=== PATIENT | female | born 1960 | race Caucasian/White ===

== ENCOUNTER → 2016-12-10 | Outpatient (CLI) | payer OTHER, MEDICARE | END | disposition home or self-care (01) | LOC: LABPAT 11:24 | PROVIDERS: ATTEND Orthopaedic Surgery | DX: Z01.812 Encounter for preprocedural laboratory examination (principal) | CPT/HCPCS: 87070 ==

== ENCOUNTER 2016-12-29 08:01 | Inpatient (IN) | payer OTHER, MEDICARE ==
[2016-12-22 17:57] VITALS: BMI 29.0
[~2016-12-29 08:01] MED LIST: ACETAMINOPHEN TAB 500 MG TAB PO ONE; DEXAMETHASONE SOD PHOSPHATE 10 MG/ML 1 ML VIAL IV ONE; HYDROmorphone 1 MG/ML 1 ML SYRINGE IVP PRN; LIDOCAINE 1% 20 ML VIAL (10MG/ML) FOR IV START INTRADERMA PRN; MELOXICAM 7.5 MG TAB PO ONE; MIDAZOLAM 2 MG/2 ML VIAL IV PRN; ONDANSETRON 4 MG/2 ML VIAL IVP ONE; ROPIVACAINE 246.25 MG, EPINEPHrine 0.5 MG, KETOROLAC 30 MG, cloNIDine HCL/PF 80 MCG, WA... MISCELLANE ONE; SCOPOLAMINE 1.5MG/72HR PATCH TRANSDERM ONE; TRANEXAMIC ACID 1,000 MG in SODIUM CHLORIDE 0.9% 100 ML IVPB ONE; ceFAZolin 2 GM in SODIUM CHLORIDE 0.9% 100 ML IVPB ONE
[2016-12-29] MEDS: LACTATED RINGERS 1,000 ML IV SCH ×2 (08:25→23:14)
[2016-12-29] MEDS ORDERED: LIDOCAINE 1% 20 ML VIAL (10MG/ML) FOR IV START INTRADERMA ONE (08:26)
[2016-12-29] MEDS ORDERED: PROPOFOL 10 MG/ML 20 ML VIAL IV ONE (10:00)
[2016-12-29] MEDS ORDERED: SODIUM CHLORIDE 0.9% IRRIG 1,000 ML BTL IRRIGATION ONE (10:00)
[2016-12-29] MEDS ORDERED: MIDAZOLAM 2 MG/2 ML VIAL ONE (10:00)
[2016-12-29] MEDS ORDERED: HEPARIN SODIUM,PORCINE 10,000 UNIT/ML 1 ML VIAL ONE (10:00)
[2016-12-29] MEDS ORDERED: fentaNYL (PF) 50 MCG/ML 2 ML AMP ONE (10:00)
[2016-12-29] MEDS ORDERED: ceFAZolin 3,000 MG in SODIUM CHLORIDE 0.9% IRRIGATIO 3,000 ML IRRIGATION ONE (10:49)
[2016-12-29] MEDS ORDERED: LACTATED RINGERS 1,000 ML IV ONE (12:15)
[2016-12-29] MEDS ORDERED: MAGNESIUM HYDROXIDE 2,400 MG/10 ML CUP PO PRN (12:18)
[2016-12-29] MEDS ORDERED: HYDROcodone/APAP 7.5-325MG 1 EACH TAB PO PRN (12:18)
[2016-12-29] MEDS ORDERED: DIAZEPAM 5 MG TAB PO PRN ×2 (12:18)
[2016-12-29] MEDS ORDERED: NALOXONE 0.4 MG/ML 1 ML VIAL IV PRN (12:18)
[2016-12-29] MEDS ORDERED: ONDANSETRON 4 MG/2 ML VIAL IVP PRN (12:18)
[2016-12-29] MEDS ORDERED: HYDROmorphone 1 MG/ML 1 ML SYRINGE IVP PRN ×3 (12:18)
--- NOTE | 2016-12-29 12:28 | FL ---
Fluoroscopy HISTORY: Pain 41 seconds fluoroscopy time supplied to the referring clinician. 2 intraoperative C-arm images docum ent the procedure. See dictated report from orthopedic surgery.
--- NOTE | 2016-12-29 12:28 | XR ---
Limited left hip HISTORY: Hip replacement 2Intraoperative C-arm images document the procedure
--- NOTE | 2016-12-29 12:41 | XR ---
EXAMINATION TYPE: XR Hip Limited LT DATE OF EXAM: 12/29/2016 12:36 PM COMPARISON: NONE HISTORY: 56-year-old female status post hip surgery, assess surgical alignment TECHNIQUE: Single portable AP view FINDINGS: Image shows placement of left total hip arthroplasty. Both acetabular cup and femoral short stemmed c omponents of the prosthesis appear well seated without periprosthetic fracture. Alignment is grossly anatomic. Soft tissue gas related to recent operation. IMPRESSION: Uncomplicated postoperative appearance left total hip arthroplasty.
--- NOTE | 2016-12-29 15:33 | P.OP ---
Date of Procedure: 12/29/16 Preoperative Diagnosis: Severe osteoarthritis left hip Postoperative Diagnosis: Severe osteoarthritis left hip Procedure(s) Performed: Left total hip arthroplasty with a direct anterior approach Implants: Graf and nephew Polarstem size 5 standard Graf & Nephew R3, 3 hole acetabular shell, 52 mm Graf & Nephew reflection 6.5 mm cancellus screw, 20 mm 2 Graf & Nephew R3, XLPE 20 acetabular liner Graf & Nephew Oxinium femoral head 36 m, +0 All components were press-fit. The articulation is ceramic on polyethylene. Anesthesia: spinal Surgeon: Jimmy Ornelas Alumina Plant Supervisor #1: Jackie Ohara Estimated Blood Loss (ml): 250 (110 returned with cell saver) Pathology: other (Femoral head) Condition: stable Disposition: PACU Indications for Procedure: After failure of conservative treatment we discussed the surgical and nonsurgical treatment options at length. Patient wishes to proceed with a total hip arthroplasty with a direct anterior approach. Complications specific to this procedure were discussed at length, including but not limited to infection, leg length discrepancy, dislocation, and nerve injury. Patient is aware of all these complications and informed consent was obtained Operative Findings: The operative findings are consistent with severe osteoarthritis of the left hip. Description of Procedure: Patient was seen and evaluated in the preoperative area, consent was reviewed, and the surgical site was marked with a skin marker. Patient was then brought to the operating room and given prophylactic antibiotics intravenously. 1 g of Tranexamic acid was also given. A spinal anesthetic was administered by the anesthesia department. A Daniel catheter was then placed by the nursing staff. The patient was then placed on the Clifton table with the bony prominences well- padded. The hip area was then prepped and draped in usual sterile fashion. A universal timeout was then performed, which confirmed the patient's name, surgical site, ALLERGIES, and procedure being performed. Next the incision site was located at 1 cm distal and 1 cm lateral to the anterior superior iliac spine. The skin and subcutaneous tissues were sharply incised. Incision was carefully dissected down to the fascia overlying the tensor fascia ernesto muscle. This fascia was then incised in line with the incision. Next, using blunt finger dissection, the tensor fascia ernesto muscle was dissected off its investing fascia. The muscle was then carefully retracted laterally with a cobra retractor over the lateral neck of the femur. Next, the circumflex vessels were identified and cauterized using the AquaMantis device. The anterior hip capsule was then exposed. The capsule was then opened and an inverted T fashion. Retention sutures were placed in the inferior arms of the capsule. Cobra retractors were then placed intracapsularly. The proximal femur was then visualized. The femoral neck was then osteotomized appropriate level above the lesser trochanter. Small amount of traction was placed with the Clifton table. A small wedge of bone was then removed from the remaining femoral head. Next, using a corkscrew femoral head was easily removed from the acetabulum. On gross visual inspection, the femoral head had complete loss of articular cartilage in multiple periarticular osteophytes. Attention was then turned to the acetabulum. the acetabulum was exposed and any remaining labrum was excised. Sequential reaming of the acetabulum was performed using fluoroscopic guidance. When the appropriate size was reached, a trial was then placed. The position and fit of the trial was checked with fluoroscopy. The trial was then removed. Then, using fluoroscopic guidance, the final implant was impacted at 20 of anteversion and 40 of abduction, and fully seated in the acetabulum. 2 screws were then placed in the acetabulum. Again fluoroscopy was used to check position of the screws. Next, the liner was then impacted, with a 20 elevated liner located in the anterior superior quadrant. Component locking was confirmed. Attention was then directed to the femur. With the aid of the Clifton table, the femur was externally rotated to approximately 130, extended, and abducted under the opposite leg. A side hook was then placed under the proximal femur, and the side hook elevator was used to elevate the proximal femur. Retractors were then placed. A capsular release was performed, as well as a release of the conjoined tendon, which afforded excellent visualization of the proximal femur. Next, a box osteotome was used to lateralize the proximal femur. A iron handler was then used to locate the femoral canal. Sequential broaching was then performed with appropriate size which afforded excellent fixation in the proximal femur. A trial was then placed with appropriate head and neck, and the hip was gently reduced with the aid of the Clifton table. Fluoroscopy was then used to check position of the components, as well as to ensure equal leg lengths. The hip was then gently dislocated and the trials were then removed. Final implants were then impacted and the hip was again reduced. Final fluoroscopic x-rays confirmed that the components were in anatomic position, as well as equal leg lengths. The hip was also taken through range of motion, and found to be stable. The hip was then copiously irrigated with antibiotic solution with pulsatile lavage. The hip was then irrigated with Irrisept solution. The soft tissues were then injected with a ropivacaine solution, which consisted of 246.25 mg of ropivacaine, 0.5 mg of epinephrine, 30 mg of Toradol, 80 g of clonidine, and 48.45 mL of sterile water, for a total of 100 mL of fluid injected. A second dose of 1 g of Tranexamic acid was also given. the fascia was then closed with 2-0 strata fix suture. The subcutaneous tissue was closed with 3-0 Vicryl. The subcuticular tissue was closed with 3-0 strata fix suture. The skin was then closed with Dermabond tape. The patient was then transferred to the recovery room in stable condition. The compounding assistant MARIA TERESA Christensen was required due to the complexity of surgery , and the need for skilled offset assistant press operator for positioning, draping, exposure , retraction, and closure of the wound.
[2016-12-29] MEDS: SODIUM CHLORIDE 0.9% 1,000 ML IV SCH ×3 (16:43→23:16)
[2016-12-29] MEDS: HYDROcodone/APAP 7.5-325MG 1 EACH TAB PO PRN (16:43)
[2016-12-29] MEDS: ceFAZolin 2 GM in SODIUM CHLORIDE 0.9% 100 ML IVPB SCH ×2 (16:43→23:13)
[2016-12-29] MEDS: hydrOXYzine PAMOATE 25 MG CAP PO PRN (16:44)
[2016-12-29] MEDS: ASPIRIN 325 MG TAB PO SCH (20:41)
[2016-12-29] MEDS ORDERED: SENNOSIDES-DOCUSATE SODIUM 1 EACH TAB PO SCH (21:00)
[2016-12-29] MEDS ORDERED: PRAVASTATIN SODIUM 40 MG TAB PO SCH (21:00)
[2016-12-30] MEDS: HYDROcodone/APAP 7.5-325MG 1 EACH TAB PO PRN ×2 (00:41→06:35)
[2016-12-30] MEDS: hydrOXYzine PAMOATE 25 MG CAP PO PRN ×2 (00:41→06:36)
[2016-12-30 07:10] LABS: Anion Gap 8 mmol/L; Blood Urea Nitrogen 16 mg/dL (7-17); Calcium 8.5 mg/dL (8.4-10.2); Carbon Dioxide 26 mmol/L (22-30); Chloride 110 mmol/L (98-107); Glucose 122 mg/dL (74-99); Non-African American GFR(MDRD) >60 (>60 ml/min/1.73 sqM); Potassium 3.7 mmol/L (3.5-5.1); Sodium 144 mmol/L (137-145)
[2016-12-30 07:23] LABS: Basophils % (A) 0 %; CHCM 33.2; Eosinophils % (A) 0 %; HCT 38.5 % (34.0-46.0); HDW 2.61; Luc # (Auto) 0.18; Luc % (Auto) 1; Lymphocytes # (A) 1.7 k/uL (1.0-4.8); Lymphocytes % (A) 12 %; MCH 32.4 pg (25.0-35.0); MCHC 33.5 g/dL (31.0-37.0); MCV 96.9 fL (80.0-100.0); Monocytes # (A) 0.9 k/uL (0-1.0); Monocytes % (A) 6 %; Neutrophils # (A) 10.8 k/uL (1.3-7.7); Neutrophils % (A) 80 %; RBC 3.97 m/uL (3.80-5.40); RDW 13.4 % (11.5-15.5); WBC 13.6 k/uL (3.8-10.6); WBC (Perox) 14.08
[2016-12-30 07:42] LABS: HGB 12.9 gm/dL (11.4-16.0)
[2016-12-30 07:47] VITALS: BP 126/62; PULSE 74; RESP 16; TEMP 97.6
--- NOTE | 2016-12-30 08:56 | P.DS ---
Providers Date of admission: 12/29/16 08:01 Expected date of discharge: 12/30/16 Attending physician: Jimmy Ornelas Consults: 12/29/16 12:18 Consult Physician Routine Consulting Provider: Jackson Pedroza Reason/Comments: medical management Do you want consulting provider notified?: Yes Primary care physician: Jackson Pedroza - Discharge Diagnosis(es) (1) Primary osteoarthritis of left hip Current Visit: Yes Status: Acute (2) Status post left hip replacement Current Visit: Yes Status: Acute Hospital Course: This is a pleasant 56-year-old female who was last seen in our office with complaints of left hip pain. Patient has known history of degenerative arthritis of the left hip and presented to discuss options. After discussion consideration the patient elected to proceed with a left total hip arthroplasty. Patient was seen preoperatively medically cleared for surgery by Dr. Pedroza. Patient was admitted to [facility] and underwent left total hip arthroplasty. The procedure was performed without complications or sequelae. The patient has done well postoperatively. pain has been are reasonably controlled and is progressing with physical therapy. The patient has no new complaints today. Patient denies shortness of breath, nausea or abdominal pain. The patient appears comfortable and in no acute distress. Dressing is clean dry and intact. Incision is fine with no erythema or active drainage. Calf is soft and nontender. The patient has good foot and ankle motion without difficulty. Lower extremities are neurovascularly intact. The patient is orthopedically stable for discharge Pertinent Studies: Laboratory Tests 12/30/16 06:28 WBC 13.6 H RBC 3.97 Hgb 12.9 D Hct 38.5 MCV 96.9 Patient Condition at Discharge: Good Plan - Discharge Summary New Discharge Prescriptions: Aspirin 325 mg PO BID #60 tab HYDROcodone/APAP 7.5-325MG [[place] 7.5] 1 - 2 each PO Q6HR PRN #90 tab PRN Reason: Pain Sennosides-Docusate Sodium [Senokot-S] 2 tab PO DAILY #60 tablet Discharge Medication List Cyclobenzaprine [Flexeril] 10 mg PO HS 04/25/15 [History] Hydrochlorothiazide [Hydrodiuril] 12.5 mg PO DAILY 04/25/15 [History] Pravastatin Sodium [Pravachol] 40 mg PO HS 04/25/15 [History] Citalopram Hydrobromide [Citalopram HBr] 40 mg PO DAILY 05/06/15 [History] Ibuprofen [Motrin] 800 mg PO Q8HR PRN 12/22/16 [History] HYDROcodone/APAP 10-325MG [[place] 10] 1 - 2 tab PO Q6H PRN 12/29/16 [History] Aspirin 325 mg PO BID #60 tab 12/30/16 [Rx] HYDROcodone/APAP 7.5-325MG [[place]man 7.5] 1 - 2 each PO Q6HR PRN #90 tab 12/30/16 [ Rx] Sennosides-Docusate Sodium [Senokot-S] 2 tab PO DAILY #60 tablet 12/30/16 [Rx] Follow up Appointment(s)/Referral(s): Jimmy Ornelas DO [Doctor of Osteopathic Medicine] - 2 Weeks Activity/Diet/Wound Care/Special Instructions: Weightbearing as tolerated with walker Daily dressing changes Keep incision clean and dry Call [facility] with questions or concerns [phone] Discharge Disposition: HOME WITH HOME HEALTH SERVICES
[2016-12-30] MEDS ORDERED: MELOXICAM 7.5 MG TAB PO SCH (09:00)
[2016-12-30] MEDS ORDERED: HYDROCHLOROTHIAZIDE 12.5 MG CAP PO SCH (09:00)
[2016-12-30] MEDS ORDERED: CITALOPRAM HYDROBROMIDE 20 MG TAB PO SCH (09:00)
[2016-12-30] MEDS: ASPIRIN 325 MG TAB PO SCH (09:29)
--- NOTE | 2016-12-30 13:36 | P.CONS ---
History of Present Illness - Reason for Consult Consult date: 12/29/16 Medical management Requesting physician: Jimmy Ornelas - Chief Complaint Left hip pain - History of Present Illness Patient is a 56 shell female, patient of Dr. Jackson Pedroza in the outpatient setting, with past medical history detailed below significant for degenerative arthritis of the left hip that did not respond to medical management as an outpatient. Patient presented to the hospital for elective left total hip arthroplasty. Patient tolerated procedure well. Patient is evaluated on surgical unit she is postop day #1. Patient is doing well. Incisional pain controlled. Patient has been up walking with physical therapy. Denies chills, fevers, nausea, vomiting, shortness of breath, chest pain, abdominal pain. Patient is tolerating diet. Patient has been urinating without difficulty. Afebrile. Hemodynamically stable. Past Medical History Past Medical History: Hyperlipidemia, Hypertension, Osteoarthritis (OA) History of Any Multi-Drug Resistant Organisms: None Reported Past Surgical History: Hysterectomy, Joint Replacement Additional Past Surgical History / Comment(s): COLONOSCOPY. BILAT TKA Past Anesthesia/Blood Transfusion Reactions: No Reported Reaction Past Psychological History: Anxiety Additional Psychological History / Comment(s): CLAUSTROPHOBIC Smoking Status: Current every day smoker Past Alcohol Use History: None Reported Additional Past Alcohol Use History / Comment(s): HAS SMOKED 1 PPD SINCE AGE 16 Past Drug Use History: None Reported - Past Family History Father Family Medical History: Cancer Mother Family Medical History: Cancer Brother(s) Family Medical History: Cancer Medications and Allergies Home Medications Medication Instructions Recorded Confirmed Type Cyclobenzaprine [Flexeril] 10 mg PO HS 04/25/15 12/29/16 History Hydrochlorothiazide [Hydrodiuril] 12.5 mg PO DAILY 04/25/15 12/29/16 History Pravastatin Sodium [Pravachol] 40 mg PO HS 04/25/15 12/29/16 History Citalopram Hydrobromide 40 mg PO DAILY 05/06/15 12/29/16 History [Citalopram HBr] Ibuprofen [Motrin] 800 mg PO Q8HR PRN 12/22/16 12/29/16 History HYDROcodone/APAP 10-325MG [[place] 1 - 2 tab PO Q6H PRN 12/29/16 12/29/16 History 10] Allergies Allergy/AdvReac Type Severity Reaction Status Date / Time No Known Allergies Allergy Verified 12/29/16 15:52 Physical Exam Vitals: Vital Signs Temp Pulse Pulse Resp BP Pulse Ox 12/30/16 07:00 97.6 F 74 16 126/62 97 12/30/16 04:33 98.0 F 69 17 136/69 94 L 12/29/16 19:30 97.8 F 86 17 134/76 94 L 12/29/16 16:00 82 16 12/29/16 15:30 82 16 117/70 96 12/29/16 15:15 79 16 135/70 100 12/29/16 15:00 81 16 130/74 93 L 12/29/16 14:45 85 16 142/75 98 12/29/16 14:30 87 16 131/76 98 12/29/16 14:15 73 16 142/72 100 12/29/16 14:00 73 16 132/72 96 12/29/16 13:45 96.4 F L 72 16 127/73 98 12/29/16 13:29 71 16 123/65 98 Intake and Output 12/29/16 12/30/16 12/30/16 22:59 06:59 14:59 Intake Total 780 100 240 Output Total 700 200 Balance 780 -600 40 Intake: IV 300 Sodium Chloride 0.9% 1, 300 000 ml @ 75 mls/hr IV . [id number] [facility] Rx#:[id number] Intake, IV Titration 100 Amount ceFAZolin 2 gm In Sodium 100 Chloride 0.9% 100 ml @ 100 mls/hr IVPB Q8HR [facility] Rx#:[id number] Oral 480 240 Output: Urine 700 200 Uretheral (Daniel) 700 200 Other: Voiding Method Indwelling Catheter Weight 81.647 kg GENERAL: Pt awake and alert, well-appearing, well-nourished, and in no acute distress. HEAD: Atraumatic, normocephalic. EYES: Pupils equal, round, sclera anicteric, conjunctiva are normal. ENT: Moist mucous membranes. NECK: Supple without lymphadenopathy or JVD. LUNGS: Breath sounds clear to auscultation bilaterally. No wheezes, rales, or rhonchi. HEART: Heart S1, S2, no S3 or S4. Regular rate and rhythm. No murmurs, rubs or gallops. ABDOMEN: Soft, nontender, nondistended, normoactive bowel sounds. No guarding, no rebound. No masses or organomegaly appreciated. EXTREMITIES: Palpable peripheral pulses. No calf tenderness. Left hip incision dressing dry and intact. NEUROLOGICAL: Pt oriented x 3. Cranial nerves II through XII grossly intact. Strength and sensation grossly intact. PSYCH: Normal mood, normal affect. SKIN: Warm, dry, intact. Normal turgor. No rashes or lesions. Results CBC & Chem 7: 12/30/16 06:28 12/30/16 06:28 Labs: Abnormal Lab Results - Last 24 Hours (Table) 12/30/16 12/30/16 Range/Units 06:28 06:28 WBC 13.6 H (3.8-10.6) k/uL Neutrophils # 10.8 H (1.3-7.7) k/uL Chloride 110 H (98-107) mmol/L Glucose 122 H (74-99) mg/dL Assessment and Plan Plan: Impression: 1. Primary osteoarthritis to left hip status post total left hip arthroplasty. 2. Leukocytosis, suspect reactive. 3. History of hyperlipidemia. 4. Hypertension. 5. History of anxiety, stable. 6. Nicotine dependence. Plan: Continue surgical management by orthopedic service. Home medications have been reviewed and resumed. Smoking cessation encouraged. Continue physical therapy. Continue supportive treatment and pain management. From a medical standpoint, patient is stable for discharge when cleared by orthopedic service. Patient will follow-up with Dr. Pedroza in 1-2 weeks after discharge. The above impression and plan have been discussed and directed by Dr. Pedroza. Jeff CENTENO acting as scribe for Dr. Pedroza.
== END 2016-12-30 11:13 | disposition home health service (06) | DRG 470 ==
LOC: 2ORMAIN 08:01 → 3SUR 12:26
PROVIDERS: ADMIT Orthopaedic Surgery; ATTEND Orthopaedic Surgery
PROC: 0SRB04A Replacement of Left Hip Joint with Ceramic on Polyethylene Synthetic Substitute, Uncemented, Open Approach (ICD-10-PCS; principal; 2016-12-29 09:40)
DX: M16.12 Unilateral primary osteoarthritis, left hip (principal); I10 Essential (primary) hypertension; E78.5 Hyperlipidemia, unspecified; F17.200 Nicotine dependence, unspecified, uncomplicated; Z79.899 Other long term (current) drug therapy; D72.829 Elevated white blood cell count, unspecified; F40.240 Claustrophobia; F41.9 Anxiety disorder, unspecified; Z96.653 Presence of artificial knee joint, bilateral
CPT/HCPCS: 73501; 80048; 85025; 86850; 86891; 86900; 86901; 88300

== ENCOUNTER → 2017-05-03 | Outpatient (CLI) | payer OTHER, MEDICARE ==
--- NOTE | 2017-05-03 15:43 | US ---
EXAMINATION TYPE: US thyroid st tissue head/neck DATE OF EXAM: 05/03/2017 COMPARISON: Previous study dated 07/01/2011. CLINICAL HISTORY: E04.1 Thyroid Nodule. GLAND SIZE: Right Lobe: 4.4 x 1.7 x 1.5 cm Overall Parenchyma: heterogenous Left Lobe: 4.6 x 1.6 x 1.5 cm Overall Parenchyma: heterogeneous Isthmus Thickness: 0.5 cm NODULES RIGHT: # of nodules measured on right: 2 1. 0.6 X 0.3 x 0.3 cm cystic nodule at the mid pole with well-defined margins. This nodule is tall er than wide and shows no intranodular vascularity. Prior size: 0.5 cm 2. 0.4 X 0.3 x 0.5 cm hypoechoic solid nodule at the mid/inf pole with poorly defined margins. This nodule is taller than wide and shows no intranodular vascularity. Prior size: no prior LEFT: # of nodules measured on left: 1 1. 0.8 X 0.8 x 0.7 cm isoechoic solid nodule at the mid pole with well-defined margins. This nodul e is taller than wide and shows no intranodular vascularity. Prior size: 0.9 cm ISTHMUS: # of nodules measured in the isthmus: 0 Bilateral neck scanned. Left lymph node seen measuring 1.8 x 0.9 x 0.5 cm IMPRESSION: STABLE MULTINODULAR GOITER
--- NOTE | 2017-05-04 07:57 | MM ---
Reason for exam: additional evaluation requested from prior study. Last mammogram was performed 2 years and 7 months ago. History: Patient is postmenopausal and is nulliparous. Benign cyst aspiration of the right breast. Physical Findings: Nurse did not find any significant physical abnormalities on exam. MG 3D Diag Mammo W/Cad KEVIN Bilateral CC and MLO view(s) were taken. Prior study comparison: October 03, 2014, bilateral MG screening mammo w CAD. March 25, 2011, bilateral digital screening mammo w/CAD. There are scattered fibroglandular densities. No significant new findings when compared with previous films. These results were verbally communicated with the patient and result sheet given to the patient on 05/03/17. ASSESSMENT: Benign, BI-RAD 2 RECOMMENDATION: Routine screening mammogram of both breasts in 1 year. Manage patient on a clinical basis.
== END | disposition home or self-care (01) ==
LOC: RADUSWWP 15:00
PROVIDERS: ATTEND Family Medicine
DX: N64.52 Nipple discharge (principal); E04.2 Nontoxic multinodular goiter
CPT/HCPCS: 76536; G0204; G0279

== ENCOUNTER → 2017-06-24 | Outpatient (CLI) | payer OTHER, MEDICARE ==
--- NOTE | 2017-06-25 07:58 | US ---
EXAMINATION TYPE: US carotid duplex BILAT DATE OF EXAM: 06/24/2017 COMPARISON: NONE CLINICAL HISTORY: G45.9 Acute Transient cerebral ischemic attack. Right facial numbness and mild faci al drooping; smoker x 40 years. EXAM MEASUREMENTS: RIGHT: Peak Systolic Velocity (PSV) cm/sec ----- Right CCA: 82.4 ----- Right ICA: 90.5 ----- Right ECA: 106.7 ICA/CCA ratio: 1.1 RIGHT: End Diastole cm/sec ----- Right CCA: 23.9 ----- Right ICA: 31.7 ----- Right ECA: 15.6 LEFT: Peak Systolic Velocity (PSV) cm/sec ----- Left CCA: 80.3 ----- Left ICA: 101.8 ----- Left ECA: 170.8 ICA/CCA ratio: 1.3 LEFT: End Diastole cm/sec ----- Left CCA: 27.3 ----- Left ICA: 31.1 ----- Left ECA: 29.3 VERTEBRALS (direction of flow): Right Vertebral: Antegrade Left Vertebral: Antegrade Cardiac Rhythm: Normal Mild intimal thickening is noted at bilateral carotid bifurcation with additional wall change imaged at Left ECA proximally with abnormally elevated PSV at Left ECA. IMPRESSION: 1. Atheromatous plaquing without significant flow-limiting stenosis. Criteria for Assigning % of Stenosis / Diameter reduction (Estimation based on the indirect measurements of the internal carotid artery velocities (ICA PSV). 1. Normal (no stenosis)=ICA PSV < 125 cm/s: ratio < 2.0: ICA EDV<40 cm/s. 2. Less than 50% stenosis=ICA PSV < 125 cm/s: ratio < 2.0: ICA EDV<40 cm/s. 3. 50 to 69% stenosis=ICA PSV of 125 to 230 cm/s: ration 2.0 ? 4.0: ICA EDV 40-100 cm/s. 4. Greater than 70% stenosis to near occlusion= ICA PSV > 230 cm/s: ratio > 4.0: ICA EDV > 100 cm/s. 5. Near occlusion= ICA PSV velocities may be low or undetectable: variable ratio and ICA EDV. 6. Total occlusion=unable to detect flow.
== END | disposition home or self-care (01) ==
LOC: RADUSWWP 15:36
PROVIDERS: ATTEND Family Medicine
DX: I65.23 Occlusion and stenosis of bilateral carotid arteries (principal)
CPT/HCPCS: 93880

== ENCOUNTER → 2017-07-08 | Outpatient (CLI) | payer OTHER, MEDICARE ==
--- NOTE | 2017-07-08 09:58 | MR ---
EXAMINATION TYPE: MR brain wo con DATE OF EXAM: 07/08/2017 9:44 AM COMPARISON: NONE HISTORY: lt acute arterial ischemic stroke Multiplanar and multispin-echo imaging of the brain was performed . The ventricles, basal cisterns and sulci overlying the cerebral convexities are within normal limits. There is no evidence for midline shift or mass effect. Acute intracranial hemorrhage or extra-axial collection is not evident. The brain parenchyma reveals no abnormal increased signal. No acute edema is identified. The paranasal sinuses and mastoid air cells are well-aerated. IMPRESSION: Unremarkable MRI of the brain.
== END | disposition home or self-care (01) ==
LOC: RADMRIMAIN 09:11
PROVIDERS: ATTEND Psychiatry & Neurology Neurology
DX: I63.512 Cerebral infarction due to unspecified occlusion or stenosis of left middle cerebral artery (principal)
CPT/HCPCS: 70551

== ENCOUNTER → 2017-09-06 | Outpatient (CLI) | payer OTHER, MEDICARE ==
--- NOTE | 2017-09-06 10:33 | CT ---
EXAMINATION TYPE: CT chest wo con DATE OF EXAM: 09/06/2017 COMPARISON: 01/08/2011 HISTORY: Hemoptysis CT DLP: 493.1 mGycm, Automated exposure control for dose reduction was used. CONTRAST: Performed injected with 0 mL of Omnipaque 350. TECHNIQUE: Axial images were obtained at 5 mm thick sections. Reconstructed images are reviewed on [employer] computer in the coronal plane. FINDINGS: Portion of the thyroid visualized is normal. There appears to be some scarring at the right apex, stable. A 0.6 cm density is in the anterior left apex, new. There is a tiny 0.3 cm nodule within the anterior right upper lobe, new. Series 4 image 1 6. A pneumatocele may be in the superior segment left lower lobe. A 0.6 cm pleural-based density may be in the posterior lateral right lung base, enlarged from 2010. Series 4 image 55. No enlarged mediastinal or hilar adenopathy is evident. There are scattered small lymph nodes withi n the mediastinum. The ascending aorta diameter at the level of the main pulmonary artery is 3.5 cm. The main pulmonary artery diameter at the bifurcation is 3.1 cm. Mild coronary artery calcifications present. Limited CT sections are obtained through the upper abdomen. Abdomen is essentially unremarkable. IMPRESSIONS: 1. Few scattered small nodules discussed above. Follow-up chest CT in 6 months is recommended for ree valuation.
== END | disposition home or self-care (01) ==
LOC: RADCTMAIN 07:19
PROVIDERS: ATTEND Family Medicine
DX: R91.8 Other nonspecific abnormal finding of lung field (principal); R04.2 Hemoptysis
CPT/HCPCS: 71250

== ENCOUNTER 2017-12-16 10:57 | Day surgery (SDC) | payer MEDICARE, OTHER ==
[2017-12-14 16:57] VITALS: BMI 29.0
[~2017-12-16 10:57] MED LIST changes: -ACETAMINOPHEN TAB 500 MG TAB PO ONE; +ALBUTEROL NEB (CONC) 2.5 MG/0.5 ML INHALATION ONE; +ATROPINE SULFATE 0.4 MG/ML 1 ML VIAL IM ONE; -DEXAMETHASONE SOD PHOSPHATE 10 MG/ML 1 ML VIAL IV ONE; -HYDROmorphone 1 MG/ML 1 ML SYRINGE IVP PRN; +LACTATED RINGERS 1,000 ML IV SCH; +LIDOCAINE 2% (PF) 20 MG/ML 2 ML AMP INHALATION ONE; -MELOXICAM 7.5 MG TAB PO ONE; -MIDAZOLAM 2 MG/2 ML VIAL IV PRN; -ONDANSETRON 4 MG/2 ML VIAL IVP ONE; +Pre Op ABX Message 1 EACH MISC MISCELLANE ONE; -ROPIVACAINE 246.25 MG, EPINEPHrine 0.5 MG, KETOROLAC 30 MG, cloNIDine HCL/PF 80 MCG, WA... MISCELLANE ONE; -SCOPOLAMINE 1.5MG/72HR PATCH TRANSDERM ONE; -TRANEXAMIC ACID 1,000 MG in SODIUM CHLORIDE 0.9% 100 ML IVPB ONE; -ceFAZolin 2 GM in SODIUM CHLORIDE 0.9% 100 ML IVPB ONE
[2017-12-16 11:36] VITALS: RESP 16; TEMP 98.5
[2017-12-16] MEDS ORDERED: MIDAZOLAM 2 MG/2 ML VIAL ONE (12:26)
[2017-12-16] MEDS ORDERED: PROPOFOL 10 MG/ML 20 ML VIAL IV ONE (12:26)
[2017-12-16] MEDS ORDERED: LIDOCAINE 1% INJ 10MG/ML (20 ML MDV) ONE (12:26)
--- NOTE | 2017-12-16 12:55 | P.PCN ---
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 The patient was premedicated with a combination of Versed 2 mg and Diprivan 120 mg. After achieving adequate sedation, the flexible bronchoscope was inserted to the right nostril and was advanced into the upper airway. Examination of the posterior oropharynx and larynx was done and there was significant amount of adipose tissue with collapsibility of the upper airway typical of an underlying obstructive sleep apnea. The epiglottis was identified. It was within normal limits. The vallecula, arytenoids and vocal cords were inspected and were within normal limits. There was no evidence of any abnormalities or any bleeding source in the upper airway. A total of 2 mL of 1% lidocaine was applied to the vocal cords and following that the patient was intubated and the bronchoscope was moved throughout the airway. Examination of the tracheal bronchial tree was done. The visualized airways included the trachea, bilateral mainstem bronchi, right upper lobe bronchus, right middle lobe bronchus, bronchus intermedius, right lower lobe bronchus, left upper lobe bronchus, left lower lobe bronchus, left mainstem bronchus. All of these airways were free of any endobronchial tumors or lesions. In fact no fresh blood or any old blood or blood clots was identified. The bronchial mucosa was slightly inflamed and erythematous in the level of the secondary brenda the to the left upper lobe and the left lower lobe. No foreign bodies. No tumors. Some loose secretions were seen and these were suctioned out. Note that the patient had a component of tracheal bronchomalacia which was moderate in severity with dynamic obstruction of the lower airways with exhalation maneuvers and coughing. At the and of the procedure, the bronchoscope was removed and the patient was transferred recovery in stable condition. This is a normal airway examination with some sicca bronchomalacia evident on inspection. No biopsy obtained. The patient was discharged home and she'll contact me back if there is any recurrent hemoptysis.
[2017-12-16] MEDS ORDERED: LACTATED RINGERS 1,000 ML IV ONE (12:57)
[2017-12-16 13:42] VITALS: BP 134/72; PULSE 77
[2017-12-17] MEDS ORDERED: LACTATED RINGERS 1,000 ML IV ONE (05:00)
== END 2017-12-16 13:55 | disposition home or self-care (01) ==
LOC: ORWHC2ENDO 10:57
PROVIDERS: ATTEND Internal Medicine Critical Care Medicine
DX: J98.09 Other diseases of bronchus, not elsewhere classified (principal); G47.33 Obstructive sleep apnea (adult) (pediatric); E78.5 Hyperlipidemia, unspecified; I10 Essential (primary) hypertension; J44.9 Chronic obstructive pulmonary disease, unspecified; F17.210 Nicotine dependence, cigarettes, uncomplicated; M19.90 Unspecified osteoarthritis, unspecified site; M41.9 Scoliosis, unspecified; R60.0 Localized edema; F41.9 Anxiety disorder, unspecified; F32.9 Major depressive disorder, single episode, unspecified; Z79.82 Long term (current) use of aspirin; Z79.891 Long term (current) use of opiate analgesic; Z79.899 Other long term (current) drug therapy
CPT/HCPCS: 94640; 31622; J2250; J2001 ×2; J2704; 31624

== ENCOUNTER → 2018-05-30 | Outpatient (CLI) | payer MEDICARE ==
--- NOTE | 2018-05-30 17:04 | CT ---
EXAMINATION TYPE: CT chest w con DATE OF EXAM: 05/30/2018 COMPARISON: 09/06/2017, chest x-ray 12/09/2017 HISTORY: abnormal CXR CT DLP: 542 mGycm, Automated exposure control for dose reduction was used. CONTRAST: Performed injected with 100mL mL of Isovue 300. TECHNIQUE: Axial images were obtained at 5 mm thick sections. Reconstructed images are reviewed on [employer] computer in the coronal plane. FINDINGS: Portion of the thyroid visualized is normal. The right apical scarring appears stable. 0.6 cm left apical anterior thickening is stable. Previous 3 mm anterior right lung density is not identified on the current exam. Some pneumonitis change in the lingula is nonspecific but could be related atelectasis or pneumonia. No enlarged mediastinal or hilar adenopathy is evident. The ascending aorta diameter at the level o f the main pulmonary artery is 3.3 cm. The main pulmonary artery diameter at the bifurcation is 2.[address] sections are obtained through the upper abdomen. Abdomen is essentially unremarkable. IMPRESSIONS: 1. Stable CT chest. Follow-up exam in one year is recommended to confirm continued stability.
== END | disposition home or self-care (01) ==
LOC: RADCTMAIN 07:12
PROVIDERS: ATTEND Internal Medicine Critical Care Medicine
DX: R91.8 Other nonspecific abnormal finding of lung field (principal)
CPT/HCPCS: 71260; Q9967

== ENCOUNTER → 2018-11-01 | Outpatient (CLI) | payer MEDICARE ==
--- NOTE | 2018-11-01 11:37 | CT ---
EXAMINATION TYPE: CT abdomen pelvis wo/w con DATE OF EXAM: 11/01/2018 COMPARISON: HISTORY: Periumbilical pain and bloating CT DLP: 1623.3 mGycm Automated exposure control for dose reduction was used. CONTRAST: CT scan of the abdomen pelvis is performed without and with IV Contrast, patient injected with 100 mL of Isovue 300. FINDINGS- LUNG BASES- No significant abnormality is appreciated. LIVER/GB- No gross abnormality is appreciated. PANCREAS- No gross abnormality is seen. SPLEEN-sensory spleen noted. ADRENALS- No gross abnormality is seen. KIDNEYS/BLADDER-there is a 2 cm left renal lesion which measures 39 Hounsfield units is not compatibl e with a simple cyst. No hydronephrosis. No nephrolithiasis.. BOWEL-diverticulosis of the colon. Localized area of wall thickening within the sigmoid colon. More l ocalized area of bowel narrowing near the splenic flexure appears transient. Likely related to focal area of peristalsis.. LYMPH NODES- No greater than 1cm abdominal or pelvic lymph nodes areappreciated. OSSEOUS STRUCTURES-hypertrophic and degenerative change of the vertebral column. Previous surgery inv olving the left hip. Arthropathy of the right hip.. OTHER- 2 cm left adnexal cyst recommend pelvic ultrasound. IMPRESSION- 1. There is a 2 cm left adnexal cyst recommend pelvic ultrasound. 2. There is a 2 cm left renal mass which measures 39 Hounsfield units and is not compatible with a si mple cyst. Solid neoplasm not excluded. Recommend MRI. 3. Diverticulosis of the colon. There is mild wall thickening likely secondary to diverticulosis. The re is a more localized area of wall thickening involving the sigmoid colon on image 66. Correlate for polyp or mucosal lesion correlate with direct visualization or barium enema as clinically warranted.
== END | disposition home or self-care (01) ==
LOC: RADCTMAIN 09:13
PROVIDERS: ATTEND Family Medicine
DX: K57.30 Diverticulosis of large intestine without perforation or abscess without bleeding (principal); N28.89 Other specified disorders of kidney and ureter; R10.9 Unspecified abdominal pain; R19.4 Change in bowel habit
CPT/HCPCS: 74178; Q9967

== ENCOUNTER → 2018-11-07 | Outpatient (CLI) | payer MEDICARE ==
--- NOTE | 2018-11-07 22:58 | MR ---
EXAMINATION TYPE: MR kidney wo/w con DATE OF EXAM: 11/07/2018 COMPARISON: CT abdomen and pelvis from 6 days ago. HISTORY: Periumbilical pain and bloating, abnormal CT CONTRAST: Standard multiplanar, multisequence MRI departmental protocol utilizing 10 mL intravenous Gadavist ga dolinium contrast. FINDINGS: Kidneys: Correlating to recent CT centrally in the mid pole of the left kidney there is thin walled 2 .1 x 1.6 cm oval well-defined lesion of T2 hyperintensity and slight T1 hyperintensity without abnorm al postcontrast enhancement consistent with proteinaceous cyst. Remainder of both kidneys show no wor risome solid or cystic mass. No gross hydronephrosis is present bilaterally. Other: Lung bases are grossly clear. Somewhat contracted gallbladder is noted. The liver, spleen, pa ncreas, and both adrenal glands are normal in size. There is no suspicious bowel dilatation. No percy rning abdominal fluid collection is seen. No suspicious abdominal adenopathy is noted. There is multi level facet arthropathy in the visualized lower lumbar spine. IMPRESSION: The suspicious lesion on CT midpole of the left kidney shows no internal enhancement, imaging charact eristics are consistent with proteinaceous cyst.
== END | disposition home or self-care (01) ==
LOC: RADMRIMAIN 19:02
PROVIDERS: ATTEND Family Medicine
DX: N28.89 Other specified disorders of kidney and ureter (principal)
CPT/HCPCS: 74183; A9585

== ENCOUNTER → 2019-03-31 | Outpatient (CLI) | payer MEDICARE ==
--- NOTE | 2019-03-31 15:58 | CT ---
EXAMINATION TYPE: CT abdomen pelvis w con, CT abdomen wo con DATE OF EXAM: 03/31/2019 COMPARISON: MR kidney 11/07/2018, prior CT 11/01/2018 HISTORY: Follow up for left side renal mass and ovarian cyst. (accession [id number]), Follow up for lef t side renal mass. (accession [id number]) CT DLP: 1122.1 (accession [id number]), 437.7 (accession [id number]) mGycm Automated exposure control for dose reduction was used. TECHNIQUE: Helical acquisition of images from the lung bases through the pelvis have been completed, exam performed following oral contrast and before and after intravenous contrast. CONTRAST: Performed with Oral Contrast and without and with IV Contrast, patient injected with 100ml mL of Isov ue 300. FINDINGS: LUNG BASES: No significant abnormality is appreciated. AORTA: No significant abnormality is appreciated. LIVER/GB: No significant abnormality is appreciated. PANCREAS: No significant abnormality is seen. SPLEEN: No significant abnormality is seen. ADRENALS: No significant abnormality is seen. KIDNEYS: The hypodense focus involving the midpole the left kidney measures approximately 2.1 cm and slightly increased in attenuation consistent with previously described proteinaceous cyst, there is n o abnormal enhancement REPRODUCTIVE ORGANS: Uterus is absent. Left ovary shows an associated cystic focus measuring 2.5 cm. Right ovary is not seen. BOWEL: No significant abnormality is seen. Appendix is normal. FREE AIR: No Free Air visible. ASCITES: None visible. PELVIC ADENOPATHY: None visualized. RETROPERITONEAL ADENOPATHY: No Retroperitoneal Adenopathy visible. URINARY BLADDER: No significant abnormality is seen. OSSEOUS STRUCTURES: Patient is status post left hip arthroplasty. Degenerative disc changes are pres ent in the visualized spine with facet arthropathy noted in the lumbar spine at the lower levels. IMPRESSION: STABLE PROTEINACEOUS CYST, STABLE LEFT ADNEXAL CYST
== END | disposition home or self-care (01) ==
LOC: RADCTMAIN 13:40
PROVIDERS: ATTEND Family Medicine
DX: N83.00 Follicular cyst of ovary, unspecified side (principal); N28.89 Other specified disorders of kidney and ureter
CPT/HCPCS: 74150; 74177; Q9967

== ENCOUNTER → 2019-05-31 | Outpatient (CLI) | payer MEDICARE ==
--- NOTE | 2019-05-31 16:27 | US ---
EXAMINATION TYPE: US venous doppler duplex LE RT DATE OF EXAM: 05/31/2019 3:39 PM COMPARISON: NONE CLINICAL HISTORY: Right Leg, M25.571 Rt Ankle Pain. SIDE PERFORMED: TECHNIQUE: The lower extremity deep venous system is examined utilizing real time linear array sonog radha with graded compression, doppler sonography and color-flow sonography. VESSELS IMAGED: External Iliac Vein (EIV) Common Femoral Vein Deep Femoral Vein Greater Saphenous Vein * Femoral Vein Popliteal Vein Small Saphenous Vein * Proximal Calf Veins (* superficial vessels) Results given to Michelle immediately following exam. Right Leg: Negative for DVT GSV and PTV's scanned as well per order. IMPRESSION: No evidence for DVT.
== END | disposition home or self-care (01) ==
LOC: RADUSWWP 15:33
PROVIDERS: ATTEND Orthopaedic Surgery
DX: M79.661 Pain in right lower leg (principal); M19.071 Primary osteoarthritis, right ankle and foot

== ENCOUNTER → 2019-06-03 | Outpatient (CLI) | payer MEDICARE ==
--- NOTE | 2019-06-03 12:03 | CT ---
EXAMINATION TYPE: CT chest w con DATE OF EXAM: 06/03/2019 COMPARISON: 05/30/2018 HISTORY: follow up lung nodule, cough CT DLP: 515.1 mGycm, Automated exposure control for dose reduction was used. CONTRAST: Performed injected with 80 mL of Isovue 300. TECHNIQUE: Axial images were obtained at 5 mm thick sections. Reconstructed images are reviewed on [employer] computer in the coronal plane. FINDINGS: Portion of the thyroid visualized is normal. There is stable right apical scarring continued monitoring of this area is recommended. There is a 0.2 cm peripheral oval density in the right middle lobe. Series 4 image 29. This was prese nt previously. No enlarged mediastinal or hilar adenopathy is evident. The ascending aorta diameter at the level o f the main pulmonary artery is 3.3 cm. The main pulmonary artery diameter at the bifurcation is 3.[address] sections are obtained through the upper abdomen. Abdomen is essentially unremarkable. IMPRESSIONS: 1. Small lung densities stable from the comparison of 05/30/2018. These areas should be followed over the course of 2 years for stability.
== END | disposition home or self-care (01) ==
LOC: RADCTMAIN 11:25
PROVIDERS: ATTEND Internal Medicine Critical Care Medicine
DX: J98.4 Other disorders of lung (principal)
CPT/HCPCS: 71260; Q9967

== ENCOUNTER → 2019-06-30 | Outpatient (CLI) | payer MEDICARE ==
--- NOTE | 2019-06-30 17:53 | ECHOF ---
Referral Reason:R06.00 Dyspnea, unspecified MEASUREMENTS -------- HEIGHT: 167.6 cm WEIGHT: 83.9 kg BP: 134/70 RVIDd: 3.0 cm (< 3.3) IVSd: 1.4 cm (0.6 - 1.1) LVIDd: 5.1 cm (3.9 - 5.3) LVPWd: 1.4 cm (0.6 - 1.1) IVSs: 1.7 cm LVIDs: 3.7 cm LVPWs: 1.6 cm LA Diam: 3.5 cm (2.7 - 3.8) LAESV Index (A-L): 20.40 ml/m Ao Diam: 2.9 cm (2.0 - 3.7) AV Cusp: 2.0 cm (1.5 - 2.6) MV EXCURSION: 15.618 mm (> 18.000) MV EF SLOPE: 42 mm/s (70 - 150) EPSS: 0.5 cm MV E Anatoly: 0.67 m/s MV DecT: 232 ms MV A Anatoly: 0.76 m/s MV E/A Ratio: 0.89 TAPSE: 20.20 mm FINDINGS -------- Sinus rhythm. This was a technically adequate study. The left ventricular size is normal. There is moderate concentric left ventricular hypertrophy. O verall left ventricular systolic function is normal with, an EF between 55 - 60 %. The diastolic fi lling pattern is normal for the age of the patient 9.66. The right ventricle is normal in size. Normal LA size by volume 22+/-6 ml/m2. The right atrial size is normal. Interatrial and interventricular septum intact. The aortic valve is trileaflet, and appears structurally normal. No aortic stenosis or regurgitation. The mitral valve is normal. The tricuspid valve appears structurally normal. Trace tricuspid regurgitation present. The pulmonic valve was not well visualized. There is no pulmonic regurgitation present. The aortic root size is normal. Normal inferior vena cava with normal inspiratory collapse consistent with estimated right atrial pre ssure of 5 mmHg. There is no pericardial effusion. CONCLUSIONS -------- 1. Sinus rhythm. 2. This was a technically adequate study. 3. The left ventricular size is normal. 4. There is moderate concentric left ventricular hypertrophy. 5. Overall left ventricular systolic function is normal with, an EF between 55 - 60 %. 6. The diastolic filling pattern is normal for the age of the patient 9.66 7. Normal LA size by volume 22+/-6 ml/m2. 8. The aortic valve is trileaflet, and appears structurally normal. No aortic stenosis or regurgitati on. 9. The mitral valve is normal. 10. Trace tricuspid regurgitation present. 11. The pulmonic valve was not well visualized. 12. The aortic root size is normal. 13. Normal inferior vena cava with normal inspiratory collapse consistent with estimated right atrial pressure of 5 mmHg. 14. There is no pericardial effusion. PARENT PARTNER: Gail Fairchild RDCS
== END | disposition home or self-care (01) ==
LOC: RADECHMAIN 14:54
PROVIDERS: ATTEND Family Medicine
DX: I07.1 Rheumatic tricuspid insufficiency (principal)
CPT/HCPCS: 93306

== ENCOUNTER → 2019-07-04 | Outpatient (CLI) | payer MEDICARE ==
--- NOTE | 2019-07-06 10:52 | MM ---
Reason for exam: screening (asymptomatic). Last mammogram was performed 2 years and 2 months ago. History: Patient is postmenopausal and is nulliparous. Benign cyst aspiration of the right breast. Physical Findings: A clinical breast exam by your physician is recommended on an annual basis and results should be correlated with mammographic findings. MG Screening Mammo w CAD Bilateral CC and MLO view(s) were taken. Prior study comparison: May 03, 2017, bilateral MG 3d diag mammo w/cad [facility]. October 03, 2014, bilateral MG screening mammo w CAD. The breast tissue is heterogeneously dense. This may lower the sensitivity of mammography. There are benign appearing round dystrophic calcifications bilaterally. There is no discrete abnormality. ASSESSMENT: Benign, BI-RAD 2 RECOMMENDATION: Routine screening mammogram of both breasts in 1 year.
== END ==
LOC: RADMAMWWP 11:58
PROVIDERS: ATTEND Family Medicine
DX: Z12.31 Encounter for screening mammogram for malignant neoplasm of breast (principal)
CPT/HCPCS: 77067

== ENCOUNTER → 2019-09-23 | Outpatient (CLI) | payer MEDICARE ==
--- NOTE | 2019-09-23 22:30 | MR ---
EXAMINATION TYPE: MR lumbar spine wo con DATE OF EXAM: 09/23/2019 COMPARISON: None HISTORY: Back pain Multiplanar multiecho imaging of the lumbar spine was performed without contrast. Vertebra have normal alignment. There is mild uniform narrowing of lumbar disc spaces. There is no co mpression fracture. There is small posterior disc herniations from L2 to S1. There is developmentally small spinal canal and evidence of moderate spinal stenosis at L3-4 due to facet arthropathy and the minimal posterior disc bulging. The lumbar neural foramina are fairly well-maintained. There is no l umbar paraspinal mass. Posterior elements are intact. There is mild lateral recess stenosis at L4-5 d ue to facet arthropathy. There is 2 cm left renal cortical cyst. IMPRESSION: Multilevel spondylotic changes. L3-4 bony spinal stenosis related to facet arthropathy and minimal po sterior disc bulging. No fracture.
== END | disposition home or self-care (01) ==
LOC: RADMRIMAIN 09:54
PROVIDERS: ATTEND Psychiatry & Neurology Neurology
DX: M48.061 Spinal stenosis, lumbar region without neurogenic claudication (principal); M51.16 Intervertebral disc disorders with radiculopathy, lumbar region; M47.26 Other spondylosis with radiculopathy, lumbar region; M46.96 Unspecified inflammatory spondylopathy, lumbar region
CPT/HCPCS: 72148

== ENCOUNTER → 2020-07-05 | Outpatient (CLI) | payer MEDICARE ==
--- NOTE | 2020-07-06 06:55 | CT ---
EXAMINATION TYPE: CT abdomen pelvis w con DATE OF EXAM: 07/05/2020 HISTORY: abdominal pain. hx of diverticulitits. CT DLP: 1144.3mGycm Automated Exposure Control for Dose Reduction was Utilized. CONTRAST: CT scan of the abdomen and pelvis is performed with oral and with IV Contrast, patient injected with 100 mL of Isovue 300. COMPARISON: CT abdomen and pelvis March 31, 2019 FINDINGS: LUNG BASES: Elevated left hemidiaphragm with patchy bibasilar linear scarring and/or atelectasis. LIVER/GB: Contracted gallbladder. PANCREAS: A few small splenules in the splenic hilum. SPLEEN: No significant abnormality is seen. ADRENALS: No significant abnormality is seen. KIDNEYS: Symmetric cortical medullary uptake and excretion without hydronephrosis seen bilaterally. T here is 2.4 cm thin-walled cyst left kidney midpole level. BOWEL: The oral contrast reaches level of the rectum. No suspicious small or large bowel dilatation. Diverticula in the sigmoid colon. No CT evidence for acute diverticulitis. UTERUS/ADNEXA: Uterus surgically absent or markedly atrophic. Right ovary not well seen and may be hayward rgically absent. Left ovary slightly enlarged in size axial image 66 with thin-walled 2.0 x 1.8 cm hy podense lesion along the left aspect. No significant interval change from prior study. Lesion presume d benign given signal no significant interval change from [address] CT. LYMPH NODES: No greater than 1cm abdominal or pelvic lymph nodes are appreciated. OSSEOUS STRUCTURES: Levoconvex scoliosis. Moderate to severe disc space narrowing with vacuum disc ph enomenon lumbosacral junction. Posterior disc herniations efface the anterior thecal sac L3-L4 and L4 -L5 levels sagittal image 61. Left spur disc axial image 53 at L5-S1 level. Facet arthropathy mid to lower lumbar levels. Metallic artifact from left hip arthroplasty causes streak artifact. Moderate joint space loss right hip. OTHER: Mild/moderate calcified plaque of the abdominal aorta extends into iliac branch vessels. IMPRESSION: 1. Sigmoid colonic diverticulosis, no CT evidence for acute diverticulitis. No new or suspicious acut e finding identified.
== END | disposition home or self-care (01) ==
LOC: RADCTMAIN 17:24
PROVIDERS: ATTEND Surgery
DX: K57.30 Diverticulosis of large intestine without perforation or abscess without bleeding (principal)
CPT/HCPCS: 74177; Q9967

== ENCOUNTER → 2020-07-19 | Outpatient (CLI) | payer MEDICARE ==
--- NOTE | 2020-07-23 13:32 | MM ---
Reason for exam: screening (asymptomatic). Last mammogram was performed 1 year ago. History: Patient is postmenopausal and is nulliparous. Benign cyst aspiration of the right breast. Physical Findings: A clinical breast exam by your physician is recommended on an annual basis and results should be correlated with mammographic findings. MG Screening Mammo w CAD Bilateral CC and MLO view(s) were taken. Prior study comparison: July 04, 2019, bilateral MG screening mammo w CAD. May 03, 2017, bilateral MG 3d diag mammo w/cad KEVIN. There are scattered fibroglandular densities. There is chronic nodularity in the left breast inferiorly. Benign fat necrosis calcifications on the left. Stable regional calcifications on the right. No significant changes when compared with prior studies. ASSESSMENT: Benign, BI-RAD 2 RECOMMENDATION: Routine screening mammogram of both breasts in 1 year.
== END | disposition home or self-care (01) ==
LOC: RADMAMWWP 11:18
PROVIDERS: ATTEND Family Medicine
DX: Z12.31 Encounter for screening mammogram for malignant neoplasm of breast (principal)
CPT/HCPCS: 77067

== ENCOUNTER → 2021-01-21 | Outpatient (CLI) | payer MEDICARE ==
--- NOTE | 2021-01-21 16:30 | NM ---
Nuclear medicine hepatobiliary scan. HISTORY: Pain. DOSAGE: The patient received 8 ounces of ensure plus and 5.2 mCi of Technetium 99m Choletec. FINDINGS: There is heterogeneous hepatic extraction. The gallbladder is seen by 20 minutes. There i s biliary to bowel clearance by 20 minutes. Ejection fraction is 91%. IMPRESSION: 1. No evidence of cholecystitis. There is slightly heterogeneous uptake throughout the liver which co uld be artifactual. Correlation with ultrasound could be obtained for further evaluation as clinicall y warranted. 2. Ejection fraction of 91% which can occasionally be associated with hyperdynamic gallbladder. Corre late clinically.
== END | disposition home or self-care (01) ==
LOC: RADNMMAIN 12:52
PROVIDERS: ATTEND Family Medicine
DX: R93.2 Abnormal findings on diagnostic imaging of liver and biliary tract (principal)
CPT/HCPCS: 78226; A9537

== ENCOUNTER → 2021-02-03 | Outpatient (CLI) | payer MEDICARE | END | disposition home or self-care (01) | LOC: LABWHC1 14:35 | PROVIDERS: ATTEND Surgery | DX: Z01.812 Encounter for preprocedural laboratory examination (principal); Z20.822 Contact with and (suspected) exposure to COVID-19 | CPT/HCPCS: 93005; U0003; U0005 ==

== ENCOUNTER 2021-02-11 07:48 | Day surgery (SDC) | payer MEDICARE ==
[2021-02-05 16:24] VITALS: BMI 28.2
[~2021-02-11 07:48] MED LIST changes: -ALBUTEROL NEB (CONC) 2.5 MG/0.5 ML INHALATION ONE; -ATROPINE SULFATE 0.4 MG/ML 1 ML VIAL IM ONE; +DEXAMETHASONE SOD PHOSPHATE 4 MG/ML 1 ML VIAL IV ONE; +HEPARIN SODIUM,PORCINE/PF 5,000 UNIT/0.5 ML SYRINGE SQ PRN; +HYDROmorphone 0.5 MG/0.5 ML SYRINGE IVP PRN; -LIDOCAINE 1% 20 ML VIAL (10MG/ML) FOR IV START INTRADERMA PRN; -LIDOCAINE 2% (PF) 20 MG/ML 2 ML AMP INHALATION ONE; +MIDAZOLAM 2 MG/2 ML VIAL IV PRN; +ONDANSETRON 4 MG/2 ML VIAL IVP ONE; -Pre Op ABX Message 1 EACH MISC MISCELLANE ONE; +SCOPOLAMINE 1.5MG/72HR PATCH TRANSDERM ONE
[2021-02-11] MEDS ORDERED: fentaNYL (PF) 50 MCG/ML 2 ML AMP ONE (09:04)
[2021-02-11] MEDS ORDERED: INDOCYANINE GREEN 25 MG VIAL IV ONE (09:04)
[2021-02-11] MEDS ORDERED: GLYCOPYRROLATE 0.2 MG/ML 2 ML VIAL ONE (09:04)
[2021-02-11] MEDS ORDERED: PROPOFOL 10 MG/ML 20 ML VIAL IV ONE (09:04)
[2021-02-11] MEDS ORDERED: LIDOCAINE 1% INJ 10MG/ML (20 ML MDV) ONE (09:04)
[2021-02-11] MEDS ORDERED: hydrALAZINE HCL 20 MG/ML 1 ML VIAL ONE (09:04)
[2021-02-11] MEDS ORDERED: NEOSTIGMINE 1 MG/ML 10 ML VIAL ONE (09:04)
[2021-02-11] MEDS ORDERED: MIDAZOLAM 2 MG/2 ML VIAL ONE (09:04)
[2021-02-11] MEDS ORDERED: ROCURONIUM 10 MG/ML (5 ML VIAL) IV ONE (09:04)
[2021-02-11] MEDS ORDERED: SUCCINYLCHOLINE CHLORIDE 100 MG/5 ML SYR IV ONE (09:04)
[2021-02-11] MEDS ORDERED: LIDOCAINE 1%-EPI 1:100,000 20 ML VIAL SQ ONE ×2 (09:30)
--- NOTE | 2021-02-11 10:28 | P.OP ---
Date of Procedure: 02/11/21 Preoperative Diagnosis: Biliary dyskinesia Postoperative Diagnosis: Biliary dyskinesia Procedure(s) Performed: Robotic cholecystectomy Anesthesia: JHONY Surgeon: Daniel Arrington Pathology: other (Gallbladder and contents) Condition: stable Disposition: same day Indications for Procedure: 60-year-old female presented to the surgical clinic with complaints of abdominal pain in the right upper quadrant, bloating and gas. On workup, patient was found to have biliary dyskinesia. Patient has opted for laparoscopic, robotic, cholecystectomy. Risks, benefits and alternatives were provided to the patient, including risk of bleeding, risk of injury to surrounding organs, risk of infection. She did provide consent prior to attending the operating suite. Operative Findings: Distended gallbladder with multiple peritoneal and omental adhesions Description of Procedure: Patient was brought into the operating suite and placed in supine position on the operating table. Sedation was achieved by anesthesia patient underwent endotracheal intubation. The patient was then prepped and draped in regular sterile fashion. An infraumbilical incision was made and dissection was carried to the fascia. The fascia was incised and an 8 mm trocar was placed. Pneumoperitoneum was then achieved. 3 additional 8 mm ports were placed. 2 were placed in the right lower quadrant and one was placed in the left upper quadrant. The robot was undocked. The gallbladder was then grasped and retracted. The gallbladder was noted to be distended with many peritoneal and omental attachments. ICG was injected prior to procedure start. Cystic duct was dissected free from surrounding peritoneal attachments. Anatomy was confirmed using ICG technology. The cystic duct was then skeletonized. 2 clips were placed proximally and one was placed distally. The cystic duct was then ligated. Further dissection revealed the cystic artery and the cystic artery was skeletonized and ligated in a similar fashion. Dissection was then carried to remove the gallbladder from the gallbladder fossae using electrocautery. Hemostasis was noted to be maintained. The gallbladder was then placed in an Endo Catch bag and removed from the abdomen. Some mild bleeding was noted on the liver bed. Further hemostasis was made with electrocautery and Surgicell coagulant was used. Irrigation was used in the right upper quadrant and suctioned. No further bleeding was examined. At this point the infraumbilical incision fascial site was closed using an 0 Vicryl suture under direct visualization with a Trever-Denis device. All ports were then removed from the abdomen. All skin incisions were closed with 4-0 Vicryl subcuticular suture. Sterile dressing was applied. The patient was awakened in the operating suite and taken to postanesthesia care unit in stable condition.
[2021-02-11 10:39] VITALS: TEMP 96.8
[2021-02-11] MEDS ORDERED: KETOROLAC 15 MG/ML 1 ML VIAL IVP ONE (10:51)
[2021-02-11] MEDS ORDERED: LACTATED RINGERS 1,000 ML IV ONE (11:26)
[2021-02-11 12:02] VITALS: RESP 16
[2021-02-11] MEDS ORDERED: HYDROcodone/APAP 5-325MG 1 EACH TAB ONE (12:19)
[2021-02-11] MEDS ORDERED: HYDROcodone/APAP 5-325MG 1 EACH TAB PO ONE (12:30)
[2021-02-11 13:52] VITALS: BP 126/78; PULSE 71
== END 2021-02-11 13:45 | disposition home or self-care (01) ==
LOC: OR 07:48
PROVIDERS: ATTEND Surgery
DX: K81.1 Chronic cholecystitis (principal); I10 Essential (primary) hypertension; E78.5 Hyperlipidemia, unspecified; G47.33 Obstructive sleep apnea (adult) (pediatric); J44.9 Chronic obstructive pulmonary disease, unspecified; M19.90 Unspecified osteoarthritis, unspecified site; F17.210 Nicotine dependence, cigarettes, uncomplicated; Z79.82 Long term (current) use of aspirin; Z79.899 Other long term (current) drug therapy
CPT/HCPCS: 88304; 47563; J2250; J0360; J1100; J2710; J0690; J2405; J2001; J3010; J1885; J0330; J2704; J1644

== ENCOUNTER → 2021-07-15 | Outpatient (CLI) | payer MEDICARE ==
--- NOTE | 2021-07-15 14:44 | CTL ---
EXAMINATION TYPE: CT Low Dose Lung DATE OF EXAM ORDERED: 07/15/2021 HISTORY: . Lung cancer screening CT DLP: [address] CTDI: 2.33 mGy Automated exposure control for dose reduction was used. SCREENING VISIT: Initial COMPARISON: CT chest 06/03/2019 TECHNIQUE: Low dose computed tomography scan was performed through the chest at 1 mm thick sections a nd reconstructed images in the coronal plane at [address] DIAGNOSTIC QUALITY: Limited, but interpretable FINDINGS: LUNG NODULES: Present, detailed below: There is a left apical density measuring 0.9 x 1.5 cm. This was present in 2019 comparison. LUNGS: COPD: Severity: Mild Fibrosis: Severity: None Lymph nodes: None Other findings: None RIGHT PLEURAL SPACE: Effusion: None Calcification: None Thickening: None Pneumothorax: LEFT PLEURAL SPACE: Effusion: None Calcification: None Thickening: None Pneumothorax: No HEART: Heart Size: Normal Coronary calcification: None Pericardial effusion: None OTHER FINDINGS: Upper abdomen: Normal Bony thorax: Normal Supraclavicular region: Normal Other: Ascending thoracic aorta at the level the main pulmonary artery measures 3.3 cm. The main pul monary artery at the bifurcation measures 2.7 cm. IMPRESSION: 1. No suspicious interval change FOLLOW UP CT CHEST RECOMMENDATION: Yes, low-dose CT chest [address] LUNG RAD: Lung-Rad 2 Benign Appearance or Behavior
== END | disposition home or self-care (01) ==
LOC: RADCTMAIN 13:25
PROVIDERS: ATTEND Internal Medicine Critical Care Medicine
DX: Z12.2 Encounter for screening for malignant neoplasm of respiratory organs (principal); J44.9 Chronic obstructive pulmonary disease, unspecified; F17.210 Nicotine dependence, cigarettes, uncomplicated
CPT/HCPCS: 71271

== ENCOUNTER → 2021-10-08 | Outpatient (CLI) | payer MEDICARE ==
--- NOTE | 2021-10-10 11:48 | MM ---
Reason for exam: screening (asymptomatic). Last mammogram was performed 1 year and 3 months ago. History: Patient is postmenopausal and is nulliparous. Benign cyst aspiration of the right breast. Physical Findings: A clinical breast exam by your physician is recommended on an annual basis and results should be correlated with mammographic findings. MG 3D Screening Mammo W/Cad Bilateral CC and MLO view(s) were taken. Prior study comparison: July 19, 2020, bilateral MG screening mammo w CAD. July 04, 2019, bilateral MG screening mammo w CAD. Scattered fat necrosis and oil cyst calcifications left 12 o'clock periareolar focal asymmetry is more defined. ASSESSMENT: Incomplete: need additional imaging evaluation, BI-RAD 0 RECOMMENDATION: Special view mammogram of the left breast. (3D) [facility] will attempt to contact patient to return for supplemental views.
== END | disposition home or self-care (01) ==
LOC: RADMAMWWP 11:46
PROVIDERS: ATTEND Family Medicine
DX: Z12.31 Encounter for screening mammogram for malignant neoplasm of breast (principal); Z78.0 Asymptomatic menopausal state
CPT/HCPCS: 77063; 77067

== ENCOUNTER → 2021-10-16 | Outpatient (CLI) | payer MEDICARE ==
--- NOTE | 2021-10-16 14:23 | MM ---
Reason for exam: additional evaluation requested from abnormal screening. Last mammogram was performed less than 1 month ago. History: Patient is postmenopausal and is nulliparous. Benign cyst aspiration of the right breast. Physical Findings: Nurse did not find any significant physical abnormalities on exam. MG 3D Work Up W/Cad LT Spot compression CC, spot compression MLO, and LM view(s) were taken of the left breast. Prior study comparison: October 08, 2021, bilateral MG 3d screening mammo w/cad. July 19, 2020, bilateral MG screening mammo w CAD. There are scattered fibroglandular densities. The superior periareolar nodular asymmetry appears to disperse on additional views. Precautionary 6 month follow up recommended. These results were verbally communicated with the patient and result sheet given to the patient on 10/16/21. ASSESSMENT: Probably benign, BI-RAD 3 RECOMMENDATION: Follow-up diagnostic mammogram of the left breast in 6 months.
== END | disposition home or self-care (01) ==
LOC: RADMAMWWP 13:23
PROVIDERS: ATTEND Family Medicine
DX: R92.8 Other abnormal and inconclusive findings on diagnostic imaging of breast (principal); Z78.0 Asymptomatic menopausal state
CPT/HCPCS: 77065; G0279; 77061

== ENCOUNTER → 2021-11-19 | Outpatient (CLI) | payer MEDICARE ==
--- NOTE | 2021-11-19 15:31 | XR ---
Thoracic spine HISTORY: Pain 3 views of the thoracic spine There is an S-shaped thoracic scoliosis. Multilevel spondylosis is present. There is loss of disc hei ght at intervertebral levels. Thoracic vertebral bodies show preserved height. No evident paraspinal mass. Bone mineralization is reduced. The aorta is dense. IMPRESSION: Degenerative disc disease and spinal curvature.
== END | disposition home or self-care (01) ==
LOC: RADXRMAIN 14:43
PROVIDERS: ATTEND Family Medicine
DX: M51.34 Other intervertebral disc degeneration, thoracic region (principal); M43.8X4 Other specified deforming dorsopathies, thoracic region
CPT/HCPCS: 72072

== ENCOUNTER → 2022-04-29 | Outpatient (CLI) | payer MEDICARE ==
--- NOTE | 2022-04-29 11:35 | MM ---
Reason for Exam: Follow-up at short interval from prior study. Last screening mammogram was performed 7 month(s) ago. Patient History: Menarche at age 10. Patient has no children. Right ovary removed at age 38. Hysterectomy at age 38. Postmenopausal. Benign Cyst Aspiration on the right side. Risk Values: Alize 5 year model risk: 1.9%. NCI Lifetime model risk: 8.4%. Prior Study Comparison: 07/19/2020 Bilateral Screening Mammogram, [facility]. 10/08/2021 Bilateral Screening Mammogram, [facility]. 10/16/2021 Left Diagnostic Mammogram, [facility]. Tissue Density: Left: The breast tissue is heterogeneously dense. This may lower the sensitivity of mammography. Findings: Analyzed By CAD. Stable benign calcifications. No evidence for mass or distortion. Overall Assessment: Benign, BI-RAD 2 Management: Screening Mammogram of both breasts in 6 months. A clinical breast exam by your physician is recommended on an annual basis and results should be correlated with mammographic findings. This exam should not preclude additional follow-up of suspicious palpable abnormalities. Results were given to the patient verbally at the time of exam. Electronically signed and approved by: Adrián Kam M.D. Radiologis
== END | disposition home or self-care (01) ==
LOC: RADMAMWWP 10:41
PROVIDERS: ATTEND Surgery
DX: R92.8 Other abnormal and inconclusive findings on diagnostic imaging of breast (principal); Z78.0 Asymptomatic menopausal state
CPT/HCPCS: 77065; G0279; 77061

== ENCOUNTER → 2022-07-16 | Outpatient (CLI) | payer MEDICARE ==
--- NOTE | 2022-07-16 12:16 | CTL ---
EXAMINATION TYPE: CT Low Dose Lung DATE OF EXAM ORDERED: 07/16/2022 HISTORY: . Lung cancer screening, current personal history of smoking CT DLP: [address] CTDI: 2.41 mGy Automated exposure control for dose reduction was used. SCREENING VISIT: COMPARISON: 07/15/2021 TECHNIQUE: Low dose computed tomography scan was performed through the chest at 1 mm thick sections a nd reconstructed images in multiple planes at 1 mm and [address] DIAGNOSTIC QUALITY: Limited, but interpretable FINDINGS: LUNG NODULES: Stable 0.9 x 1.5 cm left apical lung nodule. Right apical pleural thickening noted. There is a subpleural nodule left lung apex measuring 5 mm new from prior exam. There is an additional 4 mm subpleural nodule left upper lobe. There is emphysematous change of the subsegmental areas of consolidation most typical of scar or atel ectasis. No pleural effusion or pneumothorax. No focal pneumonia. Heart size is stable. Atherosclerot ic change of the aorta with no evidence of aneurysm. Mild coronary artery calcified age. Hypertrophic and degenerative changes of the spine. Nonspecific calcification involving the region of the caudate lobe liver. IMPRESSION: 1. COPD with multiple nodules the largest which is stable in the left apex measuring 0.9 x 1.5 cm unc hanged from 2019 and therefore likely benign. 2. There is a new 5 mm subpleural nodule left lung apex. CT LUNG RAD AND CT CHEST RECOMMENDATION: Lung-Rad 2 Benign Appearance or Behavior: Continue annual sc reening with LDCT in 12 months. S Modifier (other clinically significant findings): S
== END | disposition home or self-care (01) ==
LOC: RADCTMAIN 11:17
PROVIDERS: ATTEND Internal Medicine Critical Care Medicine
DX: Z12.2 Encounter for screening for malignant neoplasm of respiratory organs (principal); J44.9 Chronic obstructive pulmonary disease, unspecified; Z87.891 Personal history of nicotine dependence
CPT/HCPCS: 71271

== ENCOUNTER → 2023-02-25 | Outpatient (CLI) | payer MEDICARE ==
--- NOTE | 2023-02-25 16:44 | US ---
EXAMINATION TYPE: US venous doppler duplex LE RT DATE OF EXAM: 02/25/2023 4:01 PM COMPARISON: Prior right lower extremity venous ultrasound May 31, 2019 CLINICAL INDICATION: Female, 62 years old with history of R22.41 SWELLING RT LOWER LIMB; Right leg ed kimber and pain SIDE PERFORMED: Right TECHNIQUE: The lower extremity deep venous system is examined utilizing real time linear array sonog radha with graded compression, doppler sonography and color-flow sonography. VESSELS IMAGED: Common Femoral Vein Deep Femoral Vein Greater Saphenous Vein * Femoral Vein Popliteal Vein Small Saphenous Vein * Proximal Calf Veins (* superficial vessels) Right Leg: No evidence of DVT as visualized Grayscale, color doppler, spectral doppler imaging performed of the deep veins of the right lower ext remity. There is normal flow, compressibility, vascular waveforms. IMPRESSION: No ultrasound evidence for acute DVT in the right lower extremity. No significant change from prior.
== END | disposition home or self-care (01) ==
LOC: RADUSWWP 15:26
PROVIDERS: ATTEND Family Medicine
DX: R22.41 Localized swelling, mass and lump, right lower limb (principal)

== ENCOUNTER → 2023-05-10 | Outpatient (CLI) | payer MEDICARE ==
--- NOTE | 2023-05-10 17:44 | CTL ---
EXAMINATION TYPE: CT Low Dose Lung DATE OF EXAM ORDERED: 05/10/2023 HISTORY: Personal tobacco use. Lung cancer screening CT DLP: 84.[address] CTDI: 2.4 mGy Automated exposure control for dose reduction was used. SCREENING VISIT: Subsequent COMPARISON: 07/16/2022 TECHNIQUE: Low dose computed tomography scan was performed through the chest at 1 mm thick sections a nd reconstructed images in the coronal plane at [address] DIAGNOSTIC QUALITY: Satisfactory FINDINGS: LUNG NODULES: None. 1. There is a 1.6 x 1.0 lobular density at the left anterior lung apex. Series 10 image 43. Finding a ppears stable from comparison. 2. There is a pleural-based density measuring 1.2 x 0.7 cm. This has increased in size rover from 0.6 cm the interval. PET/CT is recommended for additional evaluation. 3. There is a 0.8 cm density in the right lung apex present previously appear stable. Series 10 image 49. 4. There is a groundglass opacity in the periphery of the right lower lobe superior segment. Series 1 0 image 165. Short-term follow-up of this area in 6 months is recommended. LUNGS: COPD: Severity: None Fibrosis: Severity: None Lymph nodes: None Other findings: None RIGHT PLEURAL SPACE: Effusion: None Calcification: None Thickening: None Pneumothorax: None LEFT PLEURAL SPACE: Effusion: None Calcification: None Thickening: None Pneumothorax: None HEART: Heart Size: Normal Coronary calcification: Mild Pericardial effusion: None OTHER FINDINGS: Upper abdomen: Normal Bony thorax: Normal Supraclavicular region: Normal Other: Ascending thoracic aorta at the level the main pulmonary artery measures 3.1 cm. The main pul monary artery at the bifurcation measures 2.8 cm. IMPRESSION: 1. Increasing peripheral pleural-based density at the left apex. PET CT recommended for additional ev aluation. 2. Groundglass opacity lateral right lower lobe. Follow-up of this finding in 6 months is recommended . FOLLOW UP CT CHEST RECOMMENDATION: Follow-up PET/CT at this time. CT LUNG RAD: Lung-Rad 4A Suspicious
== END | disposition home or self-care (01) ==
LOC: RADCTMAIN 11:16
PROVIDERS: ATTEND Family Medicine
DX: Z12.2 Encounter for screening for malignant neoplasm of respiratory organs (principal); F17.210 Nicotine dependence, cigarettes, uncomplicated; J98.4 Other disorders of lung; R91.8 Other nonspecific abnormal finding of lung field
CPT/HCPCS: 71271

== ENCOUNTER → 2023-05-31 | Outpatient (CLI) | payer MEDICARE ==
--- NOTE | 2023-05-31 15:04 | US ---
EXAMINATION TYPE: US carotid duplex BILAT DATE OF EXAM: 05/31/2023 COMPARISON: US carotid 2017 CLINICAL INDICATION: Female, 63 years old with history of R22.42 , R22.41 KEVIN SWELLING, MASS, LUMP; s welling, hx TIA TECHNIQUE: Carotid duplex ultrasound examination. Indirect Doppler criteria was utilized. FINDINGS: EXAM MEASUREMENTS: RIGHT: Peak Systolic Velocity (PSV) cm/sec ----- Right CCA: 93.2 ----- Right ICA: 114.0 ----- Right ECA: 160.0 ICA/CCA ratio: 1.48 RIGHT: End Diastole cm/sec ----- Right CCA: 17.4 ----- Right ICA: 37.9 ----- Right ECA: 19.0 LEFT: Peak Systolic Velocity (PSV) cm/sec ----- Left CCA: 114.0 ----- Left ICA: 112.0 ----- Left ECA: 200.0 ICA/CCA ratio: 0.98 LEFT: End Diastole cm/sec ----- Left CCA: 19.2 ----- Left ICA: 33.2 ----- Left ECA: 27.6 VERTEBRALS (direction of flow): Right Vertebral: Antegrade Left Vertebral: Antegrade Rhythm: Normal PROJECT ENG NOTES: Mild atherosclerotic changes noted throughout bilateral carotid arteries. IMPRESSION: 1. Atheromatous plaquing bilaterally without significant flow-limiting stenosis. Criteria for Assigning % of Stenosis / Diameter reduction (Estimation based on the indirect measurements of the internal carotid artery velocities (ICA PSV). 1. Normal (no stenosis)=ICA PSV < 125 cm/s: ratio < 2.0: ICA EDV<40 cm/s. 2. Less than 50% stenosis=ICA PSV < 125 cm/s: ratio < 2.0: ICA EDV<40 cm/s. 3. 50 to 69% stenosis=ICA PSV of 125 to 230 cm/s: ration 2.0 ? 4.0: ICA EDV 40-100 cm/s. 4. Greater than 70% stenosis to near occlusion= ICA PSV > 230 cm/s: ratio > 4.0: ICA EDV > 100 cm/s. 5. Near occlusion= ICA PSV velocities may be low or undetectable: variable ratio and ICA EDV. 6. Total occlusion=unable to detect flow.
== END | disposition home or self-care (01) ==
LOC: RADUSWWP 10:43
PROVIDERS: ATTEND Family Medicine
DX: I65.23 Occlusion and stenosis of bilateral carotid arteries (principal); R22.42 Localized swelling, mass and lump, left lower limb; R22.41 Localized swelling, mass and lump, right lower limb
CPT/HCPCS: 93880

== ENCOUNTER → 2023-06-04 | Outpatient (CLI) | payer MEDICARE ==
--- NOTE | 2023-06-04 11:37 | PE ---
EXAMINATION TYPE: PET CT fusion skull to thigh DATE OF EXAM: 06/04/2023 CLINICAL INDICATION:Female, 63 years old with history of R91.1 lung nodule; TECHNIQUE: Following the intravenous administration of 11.0 mCi of F-18 FDG, whole body images are performed from the skull base to the midthigh. Images are reviewed on the computer in the coronal, a xial, and sagittal planes. Reconstructed rotating images are created on independent workstation and reviewed on the computer. A non-contrast CT is performed in conjunction with the PET scan. Glucose level 103 mg/dL CT DLP: 433.55 mGycm, Automated exposure control for dose reduction was used. COMPARISON: CT 05/10/2023 07/16/2022,07/15/2021, PET/CT None, FINDINGS: Mediastinal SUV mean is 1.1. Hepatic parenchyma SUV mean is 1.9. SKULL BASE AND NECK: No suspicious radiotracer activity. CHEST, MEDIASTINUM, AND HILAR REGION: * Right upper lung perihilar soft tissue measuring 2.0 x 2.0 cm (previously 16.0 x 13.0 on 07/16/2022 ) without increased FDG activity on the upper border of this is a focal area of abnormal FDG activity around a bronchus Max SUV 5.2. * Apical scarring changes with masslike appearance on the left apex without increased FDG activity s imilar in morphology back to 07/16/2022 however increased in size from. Max SUV 1.0 measuring 1.6 x 0. 9 cm. * Area more posterior in the left lung apex max SUV 1.5 measuring 11 mm, previously 6 mm on 2. * Right upper lung 3 mm nodular change which is below the sensitivity for PET/CT. * New left lower lobe superior segment nodule measuring 4 mm. Max SUV 0.7. ABDOMEN AND PELVIS: No suspicious radiotracer activity. MUSCULOSKELETAL STRUCTURES: No suspicious radiotracer activity. OTHER CT: Atherosclerosis of the head and tail vasculature. Coronary artery calcification. Mild cardi omegaly. Gallbladder appears surgically absent. Post surgical changes anterior abdominal wall. Left h ip arthroplasty changes with hardware intact. Remote left posterior rib injury. IMPRESSION: 1. Right anterior perihilar mass with increased FDG activity compatible with malignancy. Bronchoscop y with tissue sampling recommended. No FDG avid enlarged lymph nodes identified at this time to sugge st metastatic disease. 2. There is another masslike area within the right perihilar region without FDG activity which has i ncreased in size compared to 07/16/2022. This should be biopsied as well. 3. Area within the left lung apex anteriorly does not demonstrate increased FDG activity . Finding c ould represent granulomatous change given slow growth over time. Area more posterior in the left lung apex has mildly increased FDG activity and size compared to 07/16/2022. Continued attention on survei llance imaging. 4. New left lower lung superior segment pulmonary nodule measuring 4 mm which is not seen on 07/16/20 22.
== END | disposition home or self-care (01) ==
LOC: RADXRMAIN 06:55
PROVIDERS: ATTEND Internal Medicine Critical Care Medicine
DX: R91.1 Solitary pulmonary nodule (principal)
CPT/HCPCS: 78815; A9552

== ENCOUNTER 2023-06-17 13:12 | Day surgery (SDC) | payer MEDICARE ==
[2023-06-16 09:42] VITALS: BMI 27.9
[~2023-06-17 13:12] MED LIST changes: -HEPARIN SODIUM,PORCINE/PF 5,000 UNIT/0.5 ML SYRINGE SQ PRN; -HYDROmorphone 0.5 MG/0.5 ML SYRINGE IVP PRN; +LIDOCAINE 1% (10MG/ML) FOR IV START INTRADERMA PRN; -MIDAZOLAM 2 MG/2 ML VIAL IV PRN; -SCOPOLAMINE 1.5MG/72HR PATCH TRANSDERM ONE; +fentaNYL (PF) 50 MCG/ML 2 ML AMP IV PRN
[2023-06-17 13:46] VITALS: TEMP 97
--- NOTE | 2023-06-17 13:54 | CT ---
EXAMINATION TYPE: CT chest wo con DATE OF EXAM: 06/17/2023 COMPARISON: 06/03/2019, PET CT 06/04/2023 HISTORY: pre op imaging for ION bronch, lung nodule CT DLP: 388.7 mGycm, Automated exposure control for dose reduction was used. CONTRAST: Performed injected with 0 mL of Isovue 300. TECHNIQUE: Axial images were obtained at 5 mm thick sections. Reconstructed images are reviewed on [employer] computer in the coronal plane. FINDINGS: Portion of the thyroid visualized is normal. There is a lobular 1.1 cm x 1.7 cm density in the anterior left upper lobe. There is a pleural-based 1.2 cm density left upper lobe. There is an area of increased density at the right apex measuring 0.9 cm. There is a spiculated density at the right infrahilar region measuring 2.1 cm. No enlarged mediastinal or hilar adenopathy is evident. The ascending aorta diameter at the level o f the main pulmonary artery is 3.4 cm. The main pulmonary artery diameter at the bifurcation is 3.[address] sections are obtained through the upper abdomen. Abdomen is essentially unremarkable. IMPRESSION: 1. CT for bronchoscopy navigation. 2. Upper lobe pulmonary nodules. 3. Nodular density that the right hilar region.
[2023-06-17] MEDS ORDERED: ROCURONIUM 10 MG/ML (5 ML VIAL) IV ONE (14:23)
[2023-06-17] MEDS ORDERED: MIDAZOLAM 2 MG/2 ML VIAL ONE (14:23)
[2023-06-17] MEDS ORDERED: LIDOCAINE 2% INJ 20 MG/ML (2 ML VIAL) ONE (14:23)
[2023-06-17] MEDS ORDERED: PROPOFOL 10 MG/ML 20 ML VIAL IV ONE (14:23)
[2023-06-17] MEDS ORDERED: GLYCOPYRROLATE 0.2 MG/ML 2 ML VIAL ONE (14:23)
[2023-06-17] MEDS ORDERED: fentaNYL (PF) 50 MCG/ML 2 ML AMP ONE (14:23)
[2023-06-17] MEDS ORDERED: NEOSTIGMINE 1 MG/ML 10 ML VIAL ONE (14:23)
--- NOTE | 2023-06-17 15:21 | P.PCN ---
Date of Procedure: 06/17/23 Operative Findings: Preoperative Diagnosis: Right upper lobe nodule, 1.4 centimeter Right upper lobe groundglass/nodular pulmonary infiltrate Postoperative Diagnosis: Right upper lobe nodule Procedure(s) Performed: Flexible bronchoscopy Robotic-assisted bronchoscopy and addition to radial ultrasound evaluation of the pulmonary nodule Robotic-assisted transbronchial needle aspirate, transbronchial biopsies, transbronchial brushing of the right upper lobe nodule in addition to a bronchioloalveolar lavage Anesthesia: JHONY Surgeon: Lora Fernandez Estimated Blood Loss (ml): 0 Pathology: other Condition: stable Disposition: same day Operative Findings: A physical exam was performed. Informed consent was obtained from the patient after explaining all the risks (pneumothorax, life threatening bleeding, infection and adverse effects due to medications), benefits and alternatives to the procedure which the patient appeared to understand and so stated. The patient was connected to the monitoring devices. General anesthesia was induced and the patient was intubated by anesthesia. A final timeout was performed and the procedure confirmed by the attending staff bronchoscopist. The bronchoscope was inserted and the airway examined. The flexible bronchoscope was removed and the robotic bronchoscope was inserted. Registration was completed. I next guided the robotic bronchoscope using the navigation system into the right upper lobe anterior segment. Once in proper position, the bronchoscope was frozen. The radial EBUS probe was placed through the bronchoscope and confirmed abnormal u/s images vs normal lung. A needle was placed through the working channel and under fluoroscopic guidance, we sampled the area thought to have the mass twice. We then used a cloud biopsy pattern with ultrasound confirmation for 2 additional passes with the needle. U/S evaluation was then used to reconfirm location. Forceps were next introduced through working channel and extended the appropriate distance and 3 transbronchial biopsies were performed using fluoroscopic guidance. The u/s probe was then reinserted to confirm location. When confirmed this process was repeated for a total of 6 transbronchial biopsies. After reassessment with EBUS, a brush was placed through the extendable working channel for 1 pass with fluoroscopic guidance. U/S evaluation was then used to confirm location. 40ml of saline was then instilled into the area of the lesion. The robotic bronchoscope was removed and the airway inspected with a flexible bronchoscope and 10 ml of effluent from the BAL was collected. The aspirate was bloody and ultimately declotted and based on that, the sample was discarded. Flexible bronchoscope was inserted and regular suctioning was done. At the completion of the procedure, no residual secretions or bloody material within the airway. The bronchoscope was removed. The patient was extubated. FINDINGS: 1.The airways appeared normal 2 Successful navigation, ultrasonographic identification, and biopsies of right upper lobe pulmonary nodule 3.The the radial ultrasound view was (Concentric/Eccentric)}. RECOMMENDATIONS: Await pathology and cytology results The referring physician will be alerted to the results when available. The patient was advised to follow up with the referring physician with the biopsy results Patient will be called with results.
--- NOTE | 2023-06-17 15:58 | XR ---
EXAMINATION TYPE: XR chest 1V DATE OF EXAM: 06/17/2023 COMPARISON: 06/17/2023 HISTORY: Preop TECHNIQUE: Single frontal view of the chest is obtained. FINDINGS: Right hilar mass is noted CTs and extending in the right upper lobe as well seen by standa rd x-ray. Subsegmental changes at the left lung base most likely atelectasis. Sclerotic change right humeral head likely post arthritic with bilateral shoulder arthropathy. Hypertrophic degenerative franck nges in the spine. No interstitial edema or sizable pleural effusion. IMPRESSION: 1. Right upper lobe mass not as well seen by standard x-ray relative to today's CT scan. Additional p ulmonary nodules reported By CT scan not as well seen by x-ray.
[2023-06-17 16:42] VITALS: BP 154/84; PULSE 73; RESP 18
--- NOTE | 2023-06-18 12:18 | FL ---
Intraoperative/procedural fluoroscopic services were provided. Total fluoroscopy time is 5 seconds se conds with a total of 0 submitted images to PACS. Please see the operative/procedural note for furthe r details. DAP: [id number]
== END 2023-06-17 17:03 | disposition home or self-care (01) ==
LOC: ORWHC2ENDO 13:12
PROVIDERS: ATTEND Internal Medicine Critical Care Medicine
DX: J44.9 Chronic obstructive pulmonary disease, unspecified (principal); I10 Essential (primary) hypertension; E78.5 Hyperlipidemia, unspecified; Q32.2 Congenital bronchomalacia; F32.A Depression, unspecified; F17.200 Nicotine dependence, unspecified, uncomplicated; K57.30 Diverticulosis of large intestine without perforation or abscess without bleeding; Z98.890 Other specified postprocedural states; Z79.899 Other long term (current) drug therapy
CPT/HCPCS: 87798 ×3; 87496; 87498; 87529; 88108; 88305; 88173; 88342; 87502; 87634; 88341; 87070; 87205; 87116; 87102; 87206; 71045; 71250; 31628; 31629; 31624; J2250; J1100; J2710; J2405; J3010; J2704; J2001; S2900

== ENCOUNTER → 2023-07-15 | Outpatient (CLI) | payer MEDICARE ==
--- NOTE | 2023-07-15 17:24 | CT ---
EXAMINATION TYPE: CT chest w con DATE OF EXAM: 07/15/2023 COMPARISON: CT 06/17/2023 HISTORY: lung ca CT DLP: 798.5 mGycm. Automated Exposure Control for Dose Reduction was Utilized. TECHNIQUE: CT scan of the thorax is performed following with IV Contrast, patient injected with 100ml mL of Isovue 300. FINDINGS: LUNGS: Stable spiculated right hilar lesion measuring 2.1 cm. Stable lobular 1.1 cm x 1.7 cm density in the anterior left upper lobe. Stable pleural-based 1.2 cm d ensity left upper lobe. Stable right apical density measuring 0.9 cm. No new focal finding or diffuse pulmonary process. Pleural spaces are negative. MEDIASTINUM: There are no greater than 1 cm hilar or mediastinal lymph nodes. No cardiomegaly or conner cardial effusion. Coronary calcifications redemonstrated. No acute aortic or pulmonary arterial proc ess as seen. OTHER: There are a few scattered small hyperdense liver foci measuring up to 10 mm seen on this arter ial phase imaging through the upper liver. These can be fully characterized using dynamic MRI or CT delgado david (liver protocol). IMPRESSION: 2Stable chest CT findings as seen on 06/17/2023. Indeterminate subcentimeter liver foci as discussed.
--- NOTE | 2023-07-15 19:24 | MR ---
EXAMINATION TYPE: MR brain wo/w con DATE OF EXAM: 07/15/2023 COMPARISON: None HISTORY: Checking for Cancer-Hx of Lung CA TECHNIQUE: Multiplanar, multisequence images of the brain and brainstem is performed without and with IV contras t, utilizing 8ml mL intravenous Gadavist . FINDINGS: Diffusion weighted images demonstrate no evidence of a recent infarct or other diffusion ab normality. There is no extra-axial fluid collection or significant white matter signal abnormality. The ventricular system and cisternal spaces are normal in size and appearance. The brain volume is age appropriate. Midline structures demonstrate normal morphology. The craniocervical junction appears within normal limits. Post contrast images demonstrate no abnormal enhancement. The dural venous sinuses appear pa tent. The visualized sinuses are clear and the globes are intact. IMPRESSION: No acute process.
== END | disposition home or self-care (01) ==
LOC: RADCTMAIN 16:20
PROVIDERS: ATTEND Internal Medicine
DX: C34.11 Malignant neoplasm of upper lobe, right bronchus or lung (principal); E78.5 Hyperlipidemia, unspecified; K76.89 Other specified diseases of liver; Z71.3 Dietary counseling and surveillance
CPT/HCPCS: 71260; 70553; Q9967; A9585

== ENCOUNTER → 2023-08-03 | Outpatient (CLI) | payer MEDICARE ==
--- NOTE | 2023-08-04 14:18 | MR ---
EXAMINATION TYPE: MR liver wo/w con DATE OF EXAM: 08/03/2023 9:22 PM CLINICAL INDICATION:Female, 63 years old with history of C34.90 LUNG CANCER; [facility], Adenocarcinoma of l neela COMPARISON: 10/30/2018 CT 07/15/2023 TECHNIQUE: Multiplanar multi-sequence imaging was performed without contrast. Post contrast imaging was performed. Post IV contrast subtraction images were also submitted for review. IV Contrast: 8 cc Gadobutrol FINDINGS: LOWER CHEST: No gross irregularity. ABDOMEN Liver: No evidence for cirrhosis. There is signal dropout of the liver on chemical shift of phase jasmine ging. High DWI/T2 signal observation in the right hepatic lobe posteriorly measuring 11 mm may been p resent on prior and is increased from prior where it measured 7 mm. There was postcontrast enhancemen t which persists on delayed imaging when comparing to 2019 it is similar for postcontrast enhancement characteristics. There may be another smaller lesion in the left hepatic lobe measuring 4 mm series 801 image 41 which demonstrates postcontrast arterial phase enhancement which persists on delayed im aging. Gallbladder and Bile ducts: No evidence for ductal dilation, or biliary stricture or evidence of chol edocholithiasis.The gallbladder is surgically absent. Physiologic dilation of the extrahepatic system measuring up to 10 mm. Pancreas: No ductal dilation. No evidence for solid mass. Spleen: Normal for size. Small splenules present. Adrenal glands: Unremarkable. Kidneys: No evidence for obstructive uropathy. No suspicious renal masses. High T2 signal renal cysts bilaterally with at least a thin septation on the largest one on the left measuring up to 3.0 cm. Th is is a large cyst also demonstrates intrinsic high T1 signal. There is no abnormal postcontrast enha ncement within this lesion. This is confirmed on subtraction imaging. A simple appearing high T2 sign al renal cysts without enhancement on the right measures up to 8 mm. Stomach and Bowel: No evidence for bowel wall thickening or evidence for obstruction.. Peritoneum: No evidence of pneumoperitoneum or free fluid. Vasculature: No aortic aneurysm. Musculoskeletal: The osseous structures appear intact. Lymph Nodes: No gross evidence for lymphadenopathy. Abdominal wall: Unremarkable. IMPRESSION: 1. Bosniak type I and type II equivalent cysts. No suspicious renal masses. 2. Some indeterminate lesions within the liver one of which in the right hepatic lobe has slightly i ncreased in size from prior imaging in 2019, currently measuring 11, previously measuring about 7 mm. Finding could represent atypical hemangioma such as a flash filling hemangioma which is mildly incre ased in size. Additional smaller lesion in the left hepatic lobe may also be present and has similar enhancement characteristics. Consider follow-up in one year to ensure stability. 3. Hepatic steatosis. 4. Cholecystectomy changes with physiologic dilation of the extra hepatic biliary system.
== END | disposition home or self-care (01) ==
LOC: RADMRIMAIN 08:30
PROVIDERS: ATTEND Internal Medicine Critical Care Medicine
DX: C34.90 Malignant neoplasm of unspecified part of unspecified bronchus or lung (principal); K76.0 Fatty (change of) liver, not elsewhere classified; N28.1 Cyst of kidney, acquired; Z90.49 Acquired absence of other specified parts of digestive tract
CPT/HCPCS: 74183; A9585

== ENCOUNTER → 2023-11-30 | Outpatient (CLI) | payer MEDICARE ==
--- NOTE | 2023-11-30 14:40 | NM ---
EXAMINATION TYPE: NM bone scan whole body DATE OF EXAM: 11/30/2023 COMPARISON: CT scan 11/30/2023, PET CT scan 06/04/2020 CLINICAL INDICATION: Female, 63 years old with history of C34.11 Lung cancer; Delayed whole-body scanning was performed following the injection of 24.8 mCi Tc 99m MDP. Images acq uired 3 hours post injection. FINDINGS: Bilateral photopenic defects involving the left knee replacement surgery. Abnormal uptake involving the shoulders, wrists and feet likely post arthritic. Multiple areas of intense abnormal uptake involving the mid to lower thoracic and mid lumbar spine co rd with previous CT findings of superior degenerative disc disease IMPRESSION: 1. No diagnostic evidence of osseous metastatic
--- NOTE | 2023-11-30 15:11 | CT ---
EXAMINATION TYPE: CT chest abdomen w con CT DLP: 1231 mGycm, Automated exposure control for dose reduction was used. DATE OF EXAM: 11/30/2023 11:29 AM COMPARISON: 07/15/2023 , PET/CT 06/04/2023. CLINICAL INDICATION:Female, 63 years old with history of C34.11 Lung cancer, Lung Ca Technique: CT chest abdomen w con; Multiple axial images were obtained. Two-dimensional coronal and s agittal reconstructions were obtained. Contrast used:100 mL of Isovue 300 with IV Contrast, Oral contrast used: with Oral Contrast Findings: CHEST: LUNGS/ PLEURA: Right perihilar nodule measuring 24 x 23 mm, previously measuring 24 x 17 mm when tracy uring axially and when measuring in the sagittal planes 27 x 16 mm previously 22 x 15 mm. Apical scar ring in the lung apices is similar morphology to 07/15/2023. Groundglass nodule in the right lower lob e laterally near the fissure series 3 image 33 is stable. AIRWAY: Patent and unremarkable. HEART: Size within normal limits. MEDIASTINUM: No gross evidence of adenopathy. VASCULATURE: No aortic aneurysm. MUSCULOSKELETAL: No acute osseous abnormalities. SOFT TISSUES/LYMPH NODES: Unremarkable. LOWER NECK: No significant findings. ABDOMEN: ABDOMEN LIVER: Unremarkable GALLBLADDER AND BILE DUCTS: Unremarkable. PANCREAS: Unremarkable. SPLEEN: Unremarkable. ADRENAL GLANDS: Unremarkable. KIDNEYS AND URETERS: No evidence of hydronephrosis or renal calculus. The ureters are unremarkable. STOMACH AND BOWEL: No evidence of bowel obstruction. PERITONEUM: No evidence of pneumoperitoneum or free fluid. VASCULATURE: No evidence of aortic aneurysm. MUSCULOSKELETAL: No acute osseous abnormalities. Moderate disc degeneration changes are present throu ghout the thoracolumbar spine. LYMPH NODES: No gross evidence for lymphadenopathy. SOFT TISSUE/ABDOMINAL WALL: Unremarkable IMPRESSION: Mildly increased in size right perihilar pulmonary nodule compared to prior CT. The other pulmonary a bnormalities seen on prior CT appears stable. No new lymphadenopathy.
== END | disposition home or self-care (01) ==
LOC: RADNMMAIN 09:56
PROVIDERS: ATTEND Internal Medicine
DX: C34.11 Malignant neoplasm of upper lobe, right bronchus or lung (principal); R91.1 Solitary pulmonary nodule
CPT/HCPCS: 71260; 74160; 36415; 78306; A9503; Q9967

== ENCOUNTER → 2024-02-29 | Outpatient (CLI) | payer MEDICARE ==
--- NOTE | 2024-03-02 13:36 | CT ---
EXAMINATION TYPE: CT chest abdomen w con CT DLP: 1091.10 mGycm, Automated exposure control for dose reduction was used. DATE OF EXAM: 02/29/2024 11:46 AM COMPARISON: 11/30/2023 CLINICAL INDICATION:Female, 63 years old with history of C34.11 Lung Ca; PHH, Hx lung ca Technique: CT chest abdomen w con; Multiple axial images were obtained. Two-dimensional coronal and s agittal reconstructions were obtained. Contrast used:100 mL of Isovue 300 with IV Contrast, Oral contrast used: with Oral Contrast Findings: CHEST: LUNGS/ PLEURA: Right upper lung 13 mm nodule. There are more solid component compared to prior series 4 image 11. Left apical irregular shaped nodule measuring up to 17 mm is unchanged series 4 image 10 left apical 11 mm nodule is not significantly changed series 4 image 10. Right perihilar nodule measuring 30 x 30, previously 25 x 25 mm No focal consolidation, pneumothorax or pleural effusion. Nodule measuring 24 x 23 mm, previously measuring 24 x 17 mm when measuring axially and when measurin g in the sagittal planes 27 x 16 mm previously 22 x 15 mm. Apical scarring in the lung apices is tad lar morphology to 07/15/2023. Groundglass nodule in the right lower lobe laterally near the fissure se claribel 3 image 33 is stable. AIRWAY: Patent and unremarkable. HEART: Size within normal limits. MEDIASTINUM: No gross evidence of adenopathy. No greater than 1.0 cm short axis lymph nodes. VASCULATURE: No aortic aneurysm. MUSCULOSKELETAL: Moderate disc degeneration changes are present throughout the thoracolumbar spine. SOFT TISSUES/LYMPH NODES: Unremarkable. LOWER NECK: No significant findings. ABDOMEN: ABDOMEN LIVER: Arterial phase enhancing lesion in the left hepatic lobe measuring 6 mm is similar given diffe rences in measuring technique and slice selection. GALLBLADDER AND BILE DUCTS: Unremarkable. PANCREAS: Unremarkable. SPLEEN: Unremarkable. ADRENAL GLANDS: Unremarkable. KIDNEYS AND URETERS: No evidence of hydronephrosis or renal calculus. The ureters are unremarkable. STOMACH AND BOWEL: No evidence of bowel obstruction. PERITONEUM: No evidence of pneumoperitoneum or free fluid. VASCULATURE: Mild atherosclerotic calcifications are present throughout the abdominal aorta and its b ranches. MUSCULOSKELETAL: No acute osseous abnormalities. Moderate disc degeneration changes are present throu ghout the thoracolumbar spine. LYMPH NODES: No gross evidence for lymphadenopathy. SOFT TISSUE/ABDOMINAL WALL: Unremarkable IMPRESSION: 1. Size of right perihilar nodule now up to 30 x 30 mm.. The right apical pulmonary nodule also appe ars to be more solid compared to prior. 2. The left apical nodules appear similar in morphology and size 3. No evidence for new lymphadenopathy in the upper abdomen. 4. Stable arterial phase enhancing lesion in left hepatic lobe.
== END | disposition home or self-care (01) ==
LOC: RADCTMAIN 10:00
PROVIDERS: ATTEND Internal Medicine
DX: K76.89 Other specified diseases of liver (principal); R91.1 Solitary pulmonary nodule; C34.11 Malignant neoplasm of upper lobe, right bronchus or lung; E78.5 Hyperlipidemia, unspecified; Z71.3 Dietary counseling and surveillance
CPT/HCPCS: 71260; 74160; Q9967

== ENCOUNTER → 2024-06-06 | Outpatient (CLI) | payer MEDICARE ==
--- NOTE | 2024-06-06 16:42 | CT ---
EXAMINATION TYPE: CT chest abdomen w con DATE OF EXAM: 06/06/2024 COMPARISON: 02/29/2024 HISTORY: Hx lung ca CT DLP: 1278 mGycm, Automated exposure control for dose reduction was used. CONTRAST: Performed injected with 100 mL of Isovue 300. TECHNIQUE: Axial images were obtained at 5 mm thick sections. Reconstructed images are reviewed on [id number] computer in the coronal plane. FINDINGS: Portion of the thyroid visualized is normal. There is a 1.3 cm spiculated density at the right apex similar to comparison study. Faint groundglass opacity measuring 1.1 cm in the periphery of the right mid lung. Series 4 image 31, present previous ly There is a 1.9 cm on density anterior left apex, previous measurement 1.7 cm. Along the posterior lat eral left lung there is a 1.6 cm lobular density, previous measurement 1.2 cm. There is a right infrahilar mass measuring 3.4 x 3.0 cm. Previous measurement 3.0 x 3.0 cm. Small justin nt density is better visualized on the current examination along the periphery of the right lung tracy uring 1.3 x 0.3 cm, series 4 image 27 There is a 1.3 cm pretracheal lymph node near the level of the brenda. A 1.4 cm right paratracheal n ode is present. These are new from comparison. Some additional small shotty lymphadenopathy is presen t. The ascending aorta diameter at the level of the main pulmonary artery is 3.2 cm. The main pulmonary artery diameter at the bifurcation is 2.[address] sections are obtained through the upper abdomen. Abdomen is essentially unremarkable. IMPRESSION: 1. Right infrahilar mass enlarged from comparison currently measuring 3.4 x 3.0 cm. 2. New enlarged nodes within the paratracheal region. 3. Mildly enlarging apical irregular masses.
== END | disposition home or self-care (01) ==
LOC: RADCTMAIN 14:25
PROVIDERS: ATTEND Internal Medicine
DX: C34.11 Malignant neoplasm of upper lobe, right bronchus or lung
CPT/HCPCS: 71260; 74160

== ENCOUNTER → 2024-06-22 | Outpatient (CLI) | payer MEDICARE ==
--- NOTE | 2024-06-22 18:31 | MR ---
EXAMINATION TYPE: MR brain wo/w con DATE OF EXAM: 06/22/2024 COMPARISON: 07/15/2023 HISTORY: 64-year-old female C3 4.11, lung cancer, follow up TECHNIQUE: Multiplanar, multisequence images of the brain and brainstem were acquired before and aft er administration of 8 mL IV Gadavist. Diffusion weighted imaging is performed. FINDINGS: No evidence for acute infarction, hemorrhage, mass, mass effect, midline shift, herniation, effacemen t of basal cisterns, or extra-axial fluid collection. The ventricles and sulci are age-appropriate. Major intracranial flow voids are intact. T2/FLAIR weighted sequences show mild scattered bright signal foci in the periventricular and deep wh ite matter regions and also in the left paramedian ascencion. Midline structures demonstrate normal morphology. The craniocervical junction is normal. Post contrast images demonstrate no evidence of pathologic enhancement. Dural venous sinuses are pat ent. Mild to moderate mucosal thickening ethmoid air cells. Globes are intact. IMPRESSION: Mild chronic burden of chronic small vessel ischemic disease. No acute intracranial abnormality. No e vidence for intracranial metastases.
== END | disposition home or self-care (01) ==
LOC: RADMRIMAIN 10:24
PROVIDERS: ATTEND Internal Medicine
DX: C34.11 Malignant neoplasm of upper lobe, right bronchus or lung
CPT/HCPCS: 70553

== ENCOUNTER → 2024-07-06 | Outpatient (CLI) | payer MEDICARE ==
--- NOTE | 2024-07-10 00:32 | PE ---
EXAMINATION TYPE: PET CT fusion skull to thigh DATE OF EXAM: 07/06/2024 COMPARISON: CT chest 06/06/2024 Prior PET/CT: 06/04/2023 HISTORY: Lung cancer TECHNIQUE: Following the intravenous administration of 12.7 mCi of F-18 FDG, whole body images are p erformed from the skull base to the midthigh. Images are reviewed on the computer in the coronal, ax ial, and sagittal planes. Reconstructed rotating images are created on independent workstation and r eviewed on the computer. A localization and attenuation correction CT is performed in conjunction w ith the PET scan. DLP: 73.46 mGycm SCAN: Subsequent Blood glucose: 110 mg/dL Average Mediastinum SUV: Average Liver SUV: 2.51 FINDINGS: NECK: Punctate hyperintensity in the right supraclavicular region may be a early lymph node metastas is. SUV however is intermediate 1.63. Image 66. THORAX: Bilateral apical foci of uptake are present in the lateral lung wahl, image 69, SUV 9.75 on the right, 7 on the left. Punctate hyperintensity may be along the superior mediastinum, image 73, SUV 2.84. There is an enlarg ed lymph node with marked increased uptake in the right paratracheal region, image 79, SUV 12.22. A s econd pretracheal lymph node is directly adjacent, image 86 with an SUV of 9.84. A right peribronchia l lymph node is present, image 92, SUV 12.5. An anterior right hilar lymph node is present, image 92, SUV 11.12. Slightly more inferior is an additional anterior right hilar lymph node image 97, SUV 11. 2. ABDOMEN: No abnormal uptake PELVIS: No abnormal uptake OSSEOUS STRUCTURES: There is some uptake within the left C3 region facet. This could be a metastatic lesion or inflammatory change. Some mild uptake may be along the endplate of a mid thoracic level, ex ample image 105, SUV 3.[address]: Left hip prosthesis is noted. Mediastinal adenopathy is present COMPARISON: Uptake within the bilateral peripheral lung apices is increased over the interval. Uptake within the mediastinum. Right peribronchial uptake is normal. The anterior right hilar uptake was pr esent previously but has increased in size over the interval. IMPRESSION: 1. Increasing uptake within the peripheral lung nodules compatible with metastatic disease. 2. New uptake within enlarged mediastinal and right hilar adenopathy compatible with metastatic disea se. 3. Subtle uptake within a cervical spine and midthoracic vertebral level to be related to degenerativ e changes or metastasis. 4. Early right supraclavicular lymph node metastasis is not excluded. [facility], , 07/10/2024 12:30 AM
== END | disposition home or self-care (01) ==
LOC: RADPETMAIN 09:45
PROVIDERS: ATTEND Internal Medicine
DX: C34.11 Malignant neoplasm of upper lobe, right bronchus or lung
CPT/HCPCS: 78815

== ENCOUNTER 2025-04-11 20:34 | Emergency (ER) | payer MEDICARE ==
[2025-04-11] MEDS: hydrOXYzine HCL 25 MG TAB PO STA (21:35)
[2025-04-11] MEDS: oxyCODONE-APAP 10-325MG 1 EACH TAB PO STA (21:36)
--- NOTE | 2025-04-11 22:01 | ED ---
Anxiety HPI - General Chief Complaint: Anxiety Stated Complaint: Withdraw Time Seen by Provider: 04/11/25 20:50 Source: patient Mode of arrival: ambulatory - History of Present Illness Initial Comments: 65-year-old female presenting with chief complaint of anxiety. Patient reports that today she took her first fentanyl patch. She is currently being prescribed these patches for stage IV cancer. She reports that shortly after applying the patch she started to feel anxious and jittery. She was also feeling a bit nauseous. She is also still having her pain, she reports that previously she was on oxycodone which seemed to help with the pain and did not cause the anxiety. She is having no chest pain or difficulty breathing. No other symptoms. - Related Data Home Medications: Home Medications Medication Instructions Recorded Confirmed Pravastatin Sodium [Pravachol] 40 mg PO HS 04/25/15 06/17/23 hydroCHLOROthiazide [Hydrodiuril] 25 mg PO DAILY 04/25/15 06/17/23 Citalopram Hydrobromide 60 mg PO DAILY 05/06/15 06/17/23 [Citalopram HBr] Aspirin [Adult Low Dose Aspirin EC] 81 mg PO DAILY 12/14/17 06/17/23 Cholecalciferol (Vitamin D3) 2,000 unit PO DAILY 12/14/17 06/17/23 [Vitamin D3] Gabapentin [Neurontin] 300 mg PO BID 12/14/17 06/17/23 diazePAM [Valium] 5 mg PO DAILY PRN 12/14/17 06/17/23 Biotin 10,000 mcg PO DAILY 02/05/21 06/17/23 Diclofenac Sodium [Voltaren] 75 mg PO BID 02/05/21 06/17/23 Acetaminophen Tab [Tylenol Tab] 500 mg PO BID 06/16/23 06/17/23 Allergies/Adverse Reactions: Allergies Allergy/AdvReac Type Severity Reaction Status Date / Time No Known Allergies Allergy Verified 04/11/25 20:43 Review of Systems ROS Statement: Those systems with pertinent positive or pertinent negative responses have been documented in the HPI. ROS Other: All systems not noted in ROS Statement are negative. Past Medical History Past Medical History: Hyperlipidemia, Hypertension, Osteoarthritis (OA) Additional Past Medical History / Comment(s): Bronchitis x2 recently; lung mass right. pet scan june 04/2023, lung, bone, liver, lymphatic CA History of Any Multi-Drug Resistant Organisms: None Reported Past Surgical History: Cholecystectomy, Hysterectomy, Joint Replacement Additional Past Surgical History / Comment(s): John. total knee; Hip replacement; colonoscopy Past Anesthesia/Blood Transfusion Reactions: No Reported Reaction Past Psychological History: Anxiety Smoking Status: Current every day smoker - Past Family History Father Family Medical History: Cancer Additional Family Medical History / Comment(s): lymphoma Mother Family Medical History: Cancer Additional Family Medical History / Comment(s): lung, bone Brother(s) Family Medical History: Cancer Additional Family Medical History / Comment(s): pancreatic General Exam Limitations: no limitations General appearance: alert, in no apparent distress Head exam: Present: atraumatic, normocephalic, normal inspection Eye exam: Present: normal appearance, EOMI Neck exam: Present: normal inspection. Absent: meningismus Respiratory exam: Present: normal lung sounds bilaterally. Absent: respiratory distress, wheezes, rales, rhonchi, stridor Cardiovascular Exam: Present: regular rate, normal rhythm, normal heart sounds. Absent: systolic murmur, diastolic murmur, rubs, gallop, clicks Neurological exam: Present: alert, oriented X3 Psychiatric exam: Present: normal affect, normal mood Skin exam: Present: warm, dry, normal color Course Vital Signs 04/11/25 04/11/25 20:36 22:11 Temperature 98.2 F 97.8 F Pulse Rate 78 79 Respiratory 22 18 Rate Blood Pressure 184/73 154/81 O2 Sat by Pulse 96 97 Oximetry Medical Decision Making - Medical Decision Making Was pt. sent in by a medical professional or institution (, PA, ROBOTIC MACHINE OPERATOR, urgent care, hospital, or long-term...) When possible be specific @ -No Did you speak to anyone other than the patient for history (EMS, parent, family, police, friend...)? What history was obtained from this source @ -No Did you review nursing and triage notes (agree or disagree)? Why? @ -I reviewed and agree with nursing and triage notes Were old charts reviewed (outside hosp., previous admission, EMS record, old EKG, old radiological studies, urgent care reports/EKG's, long-term records)? Report findings @ -No old charts were reviewed Differential Diagnosis (chest pain, altered mental status, abdominal pain women, abdominal pain men, vaginal bleeding, weakness, fever, dyspnea, syncope, headache, dizziness, GI bleed, back pain, seizure, CVA, palpatations, mental health, musculoskeletal)? @ -Differential includes adverse reaction, panic attack, not noninclusive last EKG interpreted by me (3pts min.). @ -As above X-rays interpreted by me (1pt min.). @ -None done CT interpreted by me (1pt min.). @ -None done U/S interpreted by me (1pt. min.). @ -None done What testing was considered but not performed or refused? (CT, X-rays, U/S, labs)? Why? @ -None What meds were considered but not given or refused? Why? @ -None Did you discuss the management of the patient with other professionals (professionals i.e. , PA, ROBOTIC MACHINE OPERATOR, lab, RT, psych nurse, pediatric social worker, vocational director, teacher, truant officer, pillowcase cleaner)? Give summary @ -No Was smoking cessation discussed for >3mins.? @ -No Was critical care preformed (if so, how long)? @ -No Were there social determinants of health that impacted care today? How? (Homelessness, low income, unemployed, alcoholism, drug addiction, transportation, low edu. Level, literacy, decrease access to med. care, senior living, rehab)? @ -No Was there de-escalation of care discussed even if they declined (Discuss DNR or withdrawal of care, Hospice)? DNR status @ -No What co-morbidities impacted this encounter? (DM, HTN, Smoking, COPD, CAD, Cancer, CVA, ARF, Chemo, Hep., AIDS, mental health diagnosis, sleep apnea, morbid obesity)? @ -None Was patient admitted / discharged? Hospital course, mention meds given and route, prescriptions, significant lab abnormalities, going to OR and other pertinent info. @ -65-year-old female presented with chief complaint of anxiety. Started after using her first fentanyl patch today, currently prescribed these for stage IV cancer. Patient is given hydroxyzine for anxiety. She is also given oxycodone for pain as she was previously taking these for pain and she states that they seem to help. On reassessment she reports that she feels much better. She is eager for discharge home. Follow-up with PCP. Report back to ER with any new or worsening symptoms. Discussed return parameters and answered all questions. Patient conveyed verbal understanding and agreed to the plan. I discussed this case in detail with my attending Dr. Ramirez Undiagnosed new problem with uncertain prognosis? @ -No Drug Therapy requiring intensive monitoring for toxicity (Heparin, Nitro, Insul in, Cardizem)? @ -No Were any procedures done? @ -No Diagnosis/symptom? @ -Anxiety Acute, or Chronic, or Acute on Chronic? @ -Acute Uncomplicated (without systemic symptoms) or Complicated (systemic symptoms)? @ -Uncomplicated Side effects of treatment? @ -No Exacerbation, Progression, or Severe Exacerbation? @ -No Poses a threat to life or bodily function? How? (Chest pain, [place], [place], pneumonia, PE, COPD, DKA, ARF, appy, cholecystitis, CVA, Diverticulitis, Homicidal, Suicidal, threat to staff... and all critical care pts) @ -Unlikely Disposition Clinical Impression: Acute anxiety Disposition: HOME SELF-CARE Condition: Good Instructions (If sedation given, give patient instructions): Generalized Anxiety Disorder (ED) Additional Instructions: Follow-up with PCP. Report back to ER with any new or worsening symptoms. Is patient prescribed a controlled substance at d/c from ED?: No Referrals: Jackson Pedroza DO [Primary Care Provider] - 1-2 days Time of Disposition: 22:01
[2025-04-11 22:13] VITALS: BP 154/81; PULSE 79; RESP 18; TEMP 97.8
== END 2025-04-11 22:13 | disposition home or self-care (01) ==
LOC: EC 20:34
DX: F41.9 Anxiety disorder, unspecified (principal); F17.200 Nicotine dependence, unspecified, uncomplicated
CPT/HCPCS: 99284